=== PATIENT | male | born 1955 | race Caucasian/White ===

== ENCOUNTER 2021-03-09 14:25 | Outpatient (REF) | payer MEDICARE, OTHER, SELFPAY ==
--- NOTE | ~2021-03-09 | CT_ITS ---
EXAMINATION: CT CHEST SCREENING CLINICAL INFORMATION: 84-swnu-diyy history. COMPARISON: Chest x-ray and right rib x-ray February 2011 TECHNIQUE: Multidetector volumetric CT imaging of the chest is performed without contrast using low-dose technique. Additional 2-D coronal and sagittal reformatted images and axial 3-D maximum intensity projection (MIP) images are generated on the CT workstation. This CT examination was performed using dose optimization techniques as appropriate, variously including the following: *Automated exposure control *Adjustment of mA and/or kV according to patient size (this includes techniques or standardized protocols for targeted exams where dose is matched to indication/reason for exam; i.e. extremities or head) *Use of iterative reconstruction technique DLP: 91 mGy-cm FINDINGS: LUNGS: Right: There is a 3 mm right upper lobe nodule axial image 81 series 5. There is a 4 mm calcified right upper lobe nodule axial image 127 series 5. There is a 4 mm calcified right upper lobe nodule axial image 158 series 5. There is an 8 mm central right upper lobe nodule axial image 168 series 5. There is an 8 mm right middle lobe pulmonary nodule axial image 245 series 5. This appears peripheral or subpleural adjacent to the minor fissure and may represent a subpleural lymph node. There is a 3 mm peripheral or subpleural right upper lobe nodule adjacent to the junction of the major and minor fissure probably representing a subpleural lymph node. Left: There is volume loss to the left upper lobe. There is scarring or chronic subsegmental atelectasis in the left upper lobe. There may be an accessory fissure in the left upper lobe. There is a 3 mm calcified left upper lobe nodule axial image 127 series 5. There is a 3 mm left upper lobe nodule axial image 135 series 5. There are 2 small 2 mm peripheral or subpleural left upper and left lower lobe nodules adjacent to the left pleural fissure axial image 211 and axial image 212 series 5. There is a 3 mm left lower lobe nodule axial image 359 series 5. There is minimal linear scarring or subsegmental atelectasis at the left lung base. There is a 3 mm left lower lobe nodule in the posterior costophrenic angle axial image 457 series 5. There is question of left hilar adenopathy or central left lower lobe nodule or prominent vessel adjacent to the left pleural fissure. This is better visualized on sagittal and coronal reconstructed images. This measures 1.7 x 1 cm sagittal reconstructed image 40. MEDIASTINUM: There are prominent mediastinal lymph nodes. Largest lymph node is an anterior mediastinal/AP window lymph node that measures 1.3 cm in short axis axial image 20 series 3. The heart does not appear enlarged. There is no pericardial effusion. There is coronary artery calcification. PLEURA: There is a trace left pleural effusion or pleural thickening. AXILLA: There are small bilateral axillary lymph nodes. No chest wall mass or enlarged axillary lymph nodes are seen. UPPER ABDOMEN: Unremarkable. OSSEOUS STRUCTURES: There are degenerative changes of the spine. There are old right-sided rib fractures. CT/CT lung screening IMPRESSION: Bilateral pulmonary nodules. Largest right pulmonary nodule measures 8 mm in the central right upper lobe. Largest left pulmonary nodule is question pulmonary nodule versus hilar lymph node in the central left lung adjacent to the left pleural fissure and measures 1 x 1.7 cm. Prominent mediastinal lymph nodes. Coronary artery calcification. ASSESSMENT: Lung-RADS category 4. RECOMMENDATION: A 3-month low-dose chest CT followup with IV contrast to discern whether the central left lung nodule represents a vascular structure is recommended.
== END 2021-03-09 14:26 | disposition home or self-care (01) ==
LOC: HO.CT 14:25
PROVIDERS: PCP Internal Medicine; Visit Provider Physician Assistant Medical
DX: Z12.2 Encounter for screening for malignant neoplasm of respiratory organs (principal); F17.210 Nicotine dependence, cigarettes, uncomplicated
CPT/HCPCS: 71271; G0296

== ENCOUNTER 2021-04-10 11:11 | Outpatient (REF) | payer MEDICARE, OTHER, SELFPAY ==
--- NOTE | ~2021-04-10 | PE_ITS ---
EXAMINATION: Fluorine-18 FDG PET/CT Scan CLINICAL INDICATION: Initial treatment management. Pulmonary nodule. PROCEDURE: 56 minutes following the intravenous administration of 21.7 mCi of fluorine 18 FDG, images from the base of the skull to the mid thighs were obtained using a combined PET/CT scanner with CT scan based attenuation correction. No oral contrast was administered. No intravenous contrast was administered. Transverse, coronal, sagittal, and volume reconstruction projections were obtained. The patient's blood glucose as determined by a finger stick, was 117 mg/dl immediately prior to injection. Total CT exam dose-length product 1423.40 mGy-cm * These CT images were obtained using dose optimization techniques as appropriate, variously including the following: Automated exposure control * Adjustment of mA and/or kV according to patient size (this includes techniques or standardized protocols for targeted exams where dose is matched to indication/reason for exam; i.e. extremities or head) * Use of iterative reconstruction technique COMPARISON: No previous PET/CT scan is available for comparison. CT scan of the lungs dated 03/09/2021 is available for comparison. FINDINGS: (Slice numbers described in this report are numbered superiorly to inferiorly with slice #1 in the head) NECK AND VISUALIZED HEAD: No foci of abnormal FDG activity are noted. The distribution of FDG activity is physiological. There is no cervical lymphadenopathy. There is a left maxillary mucous coastal retention cyst present with no associated abnormal FDG activity. THORAX: Bilateral pulmonary nodules are present, but were better visualized on the diagnostic CT scan dated 03/09/2021. The largest of these in the medial aspect of the right lower lobe measures 1.0 x 0.8 cm, slice 88/311 and shows no abnormal FDG activity, but this is at the lower limits of resolution on the FDG PET images. All of the other nodules are subcentimeter in size and too small to be characterized on the FDG PET images. The largest of these other nodules is anterior in the right lung, probably in the middle lobe but abutting the horizontal fissure, measuring 0.8 x 0.6 cm in largest transverse dimensions, slice 102/311 and too small to be characterized on the FDG PET images. All the other nodules visualized on 03/09/2021 are much too small to be characterized on the FDG PET images and are not well visualized on these nondiagnostic CT images. Additional scarring or atelectasis anterolaterally in the left upper lobe is unchanged from 03/09/2021 shows no abnormal FDG activity. There is mildly increased activity in the left proximal peribronchial region on the left, at the bifurcation of the left mainstem bronchus showing SUVmax 4.1, slice 102/311 and there is another focus of mildly increased FDG activity just superior to the cavoatrial junction showing SUVmax 4.1, slice 103/311, both of these with no definite corresponding CT abnormalities on either these nondiagnostic CT images or the 03/09/[address] scan. 03/09/2021 showed a question of a vessel or adenopathy in the medial aspect of the interlobar fissure on the left which measured 1.7 x 1.0 cm in the sagittal reconstructions of that study and which corresponds to a 1.4 x 1.0 cm density on the axial image 106/311 of the current study. This is immediately inferior and lateral to the previously described FDG avid focus in this region, but does not appear to correspond to the latter. No additional foci of abnormal FDG activity are present in the chest. There is no pleural pericardial fluid. There is no mediastinal, supraclavicular, or axillary lymphadenopathy. ABDOMEN AND PELVIS: No foci of abnormal FDG activity are present in the abdomen or pelvis. There is mild FDG activity throughout the gastrointestinal tract without a suspicious focal component, likely physiological. There is diverticulosis without evidence of diverticulitis. The hollow viscera are otherwise unremarkable. The liver, gallbladder, spleen comment kidneys, adrenal glands, and pancreas appear unremarkable. There is no retroperitoneal, mesenteric, pelvic or inguinal lymphadenopathy. Small fat-containing bilateral inguinal hernias are present. The pelvic organs are otherwise unremarkable. MUSCULOSKELETAL: There is a small focus of mildly increased FDG activity in the lateral aspect of the left ninth rib, SUVmax 2.7, slice 145/311, with no corresponding CT abnormality, probably due to continued bone remodeling at a previous fracture site. No other foci of abnormal FDG activity are present in the osseous structures. There are mild degenerative changes in the spine and a grade 1 anterolisthesis of L5 on S1 is noted, and bilateral L5 pars defects are present with no associated abnormal FDG activity there activity. There is a lateral plate and multiple stabilizing screws in the distal right radius with no associated abnormal FDG activity. There are no suspicious sclerotic or lytic lesions visualized. VASCULAR: Vascular calcifications including coronary are noted. PET/PET CT fusion skull to thigh IMPRESSION: 1. Only the largest of multiple pulmonary nodules visualized on the 03/09/[address] scan are visualized on these nondiagnostic CT images, and these show no abnormal FDG activity, but are the lower limits of resolution on the FDG PET images. All of the other smaller nodules are not well visualized on these CT images and are much too small to be characterized on the FDG PET images. 2. An opacity in the medial aspect of the interlobar fissure on the left noted on the 03/09/2021 CT scan is visualized, measuring 1.4 x 1.0 cm on the axial images of the study. This shows no abnormal FDG activity, but medial and superior to this in the proximal peribronchial region of the left lung there is a focus of mildly increased activity present with no corresponding CT abnormality, and a similar mildly FDG avid focus in the region of the inferior aspect of the superior vena cava is noted, also with no associated CT abnormality. These are nonspecific, but the mild intensity suggests they may represent nonspecific inflammatory changes, possibly within lymph nodes that are not well visualized on the CT images. 3. Follow-up with diagnostic CT imaging in 3-6 months is recommended to evaluate the pulmonary nodules as well as these nonspecific mild FDG foci. 4. No additional abnormalities suspicious for metastatic or other malignant lesions are noted. 5. Vascular calcifications including coronary.
== END 2021-04-10 11:12 | disposition home or self-care (01) ==
LOC: HO.PET 11:11
PROVIDERS: PCP Internal Medicine; Visit Provider Surgery
DX: Z13.89 Encounter for screening for other disorder (principal)

== ENCOUNTER → 2021-04-12 13:56 | Outpatient (BNVA) | payer MEDICARE, OTHER, SELFPAY | PROVIDERS: PCP Internal Medicine; Visit Provider Internal Medicine | DX: J44.9 Chronic obstructive pulmonary disease, unspecified (principal); R91.8 Other nonspecific abnormal finding of lung field; F17.200 Nicotine dependence, unspecified, uncomplicated | CPT/HCPCS: 99202 ==

== ENCOUNTER 2021-04-24 07:51 | Outpatient (REF) | payer MEDICARE, OTHER, SELFPAY ==
--- NOTE | 2021-04-24 14:43 | PFT_ITS ---
INDICATION: Dyspnea. SPIROMETRY: The FEV1 to FVC 57% with an FEV1 2.91 L, which is 82% predicted; an FVC of 5.1 L, which is 109% predicted. Post bronchodilators, there was a significant improvement of the FVC by 13%. To note, the patient had significant small airways disease with an [id number] down to 35% predicted. Maximum voluntary ventilation 77% predicted. LUNG VOLUMES: Total lung capacity 96% predicted with a residual volume of 112% predicted and expiratory reserve volume of 59% predicted. DIFFUSION CAPACITY: DLCO 72% predicted. COMPARISONS: None. INTERPRETATION: There is an obstructive ventilatory defect consistent with mild COPD. The patient does have a significant response to bronchodilators noted and also there is evidence of small airways disease. There is a slight decrease in the maximum voluntary ventilation secondary to likely deconditioning. Lung volumes are within normal limits except for decrease in the expiratory reserve volume secondary to an elevated BMI. There is also a mild diffusion impairment. Clinical correlation warranted. Pedro Baird MD MR/MODL / [id number]
== END 2021-04-24 07:52 | disposition home or self-care (01) ==
LOC: HO.RESP 07:51
PROVIDERS: PCP Internal Medicine; Visit Provider Physician Assistant Medical
DX: R06.00 Dyspnea, unspecified (principal); R91.8 Other nonspecific abnormal finding of lung field; Z87.891 Personal history of nicotine dependence
CPT/HCPCS: 94060; 94727; 94729

== ENCOUNTER → 2021-05-14 08:49 | Outpatient (BNVA) | payer MEDICARE, SELFPAY | PROVIDERS: PCP Internal Medicine; Visit Provider Internal Medicine | DX: J44.9 Chronic obstructive pulmonary disease, unspecified (principal); R91.8 Other nonspecific abnormal finding of lung field; F17.210 Nicotine dependence, cigarettes, uncomplicated | CPT/HCPCS: 99212 ==

== ENCOUNTER 2022-10-29 06:30 | Outpatient (REF) | payer OTHER, SELFPAY ==
--- NOTE | ~2022-10-29 | XR_ITS ---
EXAMINATION: XR FOOT, RIGHT CLINICAL INFORMATION: Pain COMPARISON: Previous x-ray October 2016 TECHNIQUE: AP, lateral, and oblique views of the right foot. FINDINGS: Bone alignment is normal. No fracture or dislocation. There is arthritis at the first IP joint and MTP joint with joint space narrowing and osteophyte formation. Joint spaces are otherwise normal. There are sesamoid bones adjacent to the first metatarsal head with degenerative changes. There are calcaneal spurs. There are postsurgical changes with surgical tacks or anchors over the medial malleolus. 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 There are sesamoid bones adjacent to the first MTP joint with degenerative changes as well.
== END 2022-10-29 06:31 | disposition home or self-care (01) ==
LOC: HO.XRAY 06:30
PROVIDERS: PCP Internal Medicine; Visit Provider Internal Medicine
DX: M79.671 Pain in right foot (principal)
CPT/HCPCS: 73630

== ENCOUNTER 2024-12-21 09:46 | Outpatient (AMB) | payer OTHER, SELFPAY ==
--- OUTSIDE RECORDS SUMMARY | 2024-12-21 05:51 | XMS_ITS | Continuity of Care Document ---
Author Name [facility] Organization [facility] Care Team Providers Care Supervisor [employer] Name Role Phone [facility] Unavailable Unavailable Problems Combined list of problems from Department of Defense and Veterans Affairs facilities. It does not include entries that were removed or entered in error. Problem Status Onset Date Problem Type Date of Resolution Comments Source Chronic folliculitis Active Condition [facility] Continuous opioid dependence Active Condition Jul 16, 2024 Entered By: SMITH SANCHEZ Comment: since R ankle injury/surgery [facility] Eczema Active Condition Jul 10 Entered By: OSWALDO GUILLEN Comment: Unspecified [facility] Former heavy tobacco smoker Active Condition Jul 16, 2024 Entered By: SMITH SANCHEZ Comment: quit 2023 > 40 pack yr smoker [facility] Pain in right foot Active Condition Jul 10, 2024 Entered By: OSWALDO GUILLEN Comment: Open Fx Right foot [facility] Pain of right knee joint Active Condition Jul 10, 2024 Entered By: OSWALDO GUILLEN Comment: Knee Pain Right knee with surgery- 1994 [facility] Wrist pain Active Condition Jul 10 025 Entered By: OSWALDO GUILLEN Comment: Wrist FX Right wrist with Surgery- 2004 [facility] Diagnosis: ICD-10-CM L73.9 Follicular disorder, unspecified Active Diagnosis [facility] Medications Combined list of outpatient medications from Department of Defense and Veterans Affairs facilities.Medications provided include 1) outpatient medications from the last 15 months, and 2) patient-reported medications. Medication Details Route Status Patient Instructions Prescription Expires Prescription Number Last Dispense Date Ordering Provider Order Date Order Qty Source CHLORHEXIDI NE GLUCONATE 4% LIQUID,TOP APPLY SMALL AMOUNT TOPICALL Y ONCE DAILY DAILY FOR STAPH PROPHY TOPICA L ACTIVE 07/17/2025 [id number] 5 KESHIA YOUNGBLOODZABETH [address] [place] [address] Immunizations Combined list of available immunizations from the Department of Defense and Veterans Affairs facilities. Immunization Series Date Given Administered By Site Reaction Lot Number CVX Code Drug Title Attorney Status Comments Source COVID-19 (MODERNA), MRNA, LNP-S, PF, 50 MCG/0.5 ML (AGES 12+ YEARS) 5 2024 JOSEWILLIAMHerbert Nobles Brittney LEFT DELTO ID [id number] 312 complet ed [facility] INFLUENZA, HIGH-DOSE, TRIVALENT, PF 2024 LU GARCIA LEFT DELTO ID [id number] 135 complet ed Completed Series, [facility] COVID-19 (MODERNA), MRNA, LNP-S, PF, 100 MCG/0.5ML DOSE OR 50 MCG/0.25ML DOSE 4 2021 207 complet ed HISTORICA L INFORMATI ON - FROM OTHER REGISTRY, Covid Card Lot#: [id number] Mfr: MODERNA [employer] [facility] COVID-19 (MODERNA), MRNA, LNP-S, PF, 100 MCG/0.5ML DOSE OR 50 MCG/0.25ML DOSE 3 2020 207 complet ed HISTORICA L INFORMATI ON - FROM OTHER REGISTRY, Covid Card Lot#: [id number] Mfr: [employer] [facility] COVID-19 (MODERNA), MRNA, LNP-S, PF, 100 MCG/0.5ML DOSE OR 50 MCG/0.25ML DOSE 2 2020 207 complet ed HISTORICA L INFORMATI ON - FROM OTHER REGISTRY, Covid Card Lot#: [id number] Mfr: [employer] [facility] COVID-19 (MODERNA), MRNA, LNP-S, PF, 100 MCG/0.5ML DOSE OR 50 MCG/0.25ML DOSE 1 2020 207 complet ed HISTORICA L INFORMATI ON - FROM OTHER PROVIDER, Covid Card Lot#: [id number] Mfr: [employer] [facility] Vital Signs Combined list of inpatient and outpatient Vital Signs from Department of Defense and Veterans Affairs, ranging from 12 months to all on record, depending upon the facility. Vital Sign Value Date Comments Source SYSTOLIC BLOOD PRESSURE 148 07/17/19 25 08:56:19 [facility] DIASTOLIC BLOOD PRESSURE 82 025 08:56:19 [facility] PULSE OXIMETRY 98 07/16/2024 08:56:19 [facility] WEIGHT 258 07/16/2024 08:56:19 [facility] BMI 37 kg/m2 07/16/2024 08:56:19 [facility] PAIN 8 07/16/2024 08:56:19 [facility] HEIGHT 70 07/16/2024 08:56:19 [facility] TEMPERATURE 97.2 07/16/2024 08:56:19 [facility] PULSE 109 07/16/2024 08:56:19 [facility] RESPIRATION 20 07/16/2024 08:56:19 [facility] Encounters Combined list of: 1) Encounters from Department of Veterans Affairs facilities going backup to the last 18 months, not all VA inpatient encounters are included; 2) Encounters from the Department of Defense facilities going backup to 280 months. Location Location Details Encounter Type Encounter Number Reason For Visit Attending Provider ADM Date DC Date Status Disposition Source [facility] Outpatient Encounter [id number] 01/03 [facility] Encounter [id number] 06/29 [facility] En[facility] [id number] 07/10 [facility] En[facility] [id number] 07/16 [facility] OFFICE O/P NEW MOD 45 MIN [id number] Diagnos is: ICD-10- CM L73.9 Follicu car pal KATHE RINE ELIZABETH 07/16 [facility] En[facility] [id number] 08/03 [facility] En[facility] [id number] 08/05 [facility] [id number] 08/20 [facility] En[facility] [id number] 08/23 [facility] Social History Combined list of available smoking, tobacco, and other social history from Department of Defense and Veterans Affairs facilities. Social History Type Response Date Comment [facility] e Tobacco smoking status NHIS VA-TOBACCO USE FORMER CIGARETTES 07/10/2024 [facility] History of tobacco use VA-TOBACCO USE FORMER OTHER TYPE 07/10/2024 [facility] Advance Directives List of completed, amended, or rescinded Advance Directives on record at Department of Veterans Affairs facilities. An actual copy of the Directive is not included. Date Advance Directive Provider Source 07/16/2024 ADVANCE DIRECTIVE LESLY GARCIA RL MAYKEL CROUCHSCOTTY [facility]
--- NOTE | 2024-12-21 09:57 | A.OFFPC_ITS ---
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 Required: No Accompanied by: Self / Same As Patient Allergies No Known Allergies Allergy (Verified 12/21/24 11:50) Medication List - Last Reconciled 12/21/24 by Gertrude Bishop PA-C oxycodone 10 mg PO QID PRN Tobacco use date assessed: 12/21/24 Fall risk assessment: No Falls in past year Last assessed Fall Risk: 12/21/24 Dental Screening Dental Screen Date: 12/21/24 Did you have a dental visit in the last 12 months?: No Did you have a dental problem in the last 6 months where you did not have access to dental care?: No Was dental information given to patient?: No HPI Establish care- Zayda patient(needs pain contract) HPI Details The patient is a 69-year-old male presenting with an establishing care visit. He was a patient of Dr. Tovar. The patient has a history of Chronic Obstructive Pulmonary Disease (COPD), diagnosed a few years ago when he consulted a buttonhole tacker in 2021. He was prescribed inhalers at that time, although he denies experiencing chronic shortness of breath currently. The patient also has a history of a significant right foot/ankle injury sustained nine years ago, which required surgical intervention. He fell down approximately 15 stairs, resulting in a severe fracture where the bone protruded, necessitating surgery and subsequent pain management with oxycodone 10 mg 3 times a day. Following the surgery, he was [facility] to a [facility] where he met his previous primary care physician, Dr. Priest who continue to prescribe him the oxycodone for the right foot/ankle fracture that was surgically repaired by orthopedic surgeon. He reports he has not followed up with orthopedic surgeon since then since Dr. Priest has been giving him narcotics. He reports his son recently convinced him to go to the [facility] with him and when he was in the [facility] he reported he was unable to find a prescriber to give him the same medications therefore he came here to be restarted on his oxycodone 3 times a day [address] Dr. Priest gave him and increase in September to 4 times a day per kayliepat. Patient reports he has not been on the oxycodone since September and he is very adamant that he wants it refill today. Patient was not interested in speaking about any other medical conditions and was very irritable and angry throughout the history and physical and only wanted his oxycodone refilled. I explained to him that since he has not been on oxycodone for more than 2 months that I was not comfortable prescribing this especially at 3 or 4 times a day for an injury that happened 9 years ago that was surgically repaired and that I would have to speak to Dr. Vincent about this. He did agree to go to pain management although I explained to patient that pain management would not represcribe him the oxycodone they would more than likely give him alternate options such as alternate medications, injections or other therapies that they have available. Patient did not feel like this was acceptable and he started swearing at myself. At this time I open the exam room door and the patient stormed out saying that he was going to find another primary care provider that would prescribe him narcotics. Social history - Former smoker: Quit smoking nine month s ago. [facility] Medical History Chronic pain COPD (chronic obstructive pulmonary disease) Smoker Depression Hyperlipidemia Personal history of nicotine dependence Tubular adenoma of colon (~2017) Surgical History History of ankle surgery History of surgery on right wrist History of right knee surgery History of vasectomy (~1988) History of colonoscopy (~2017) Family History Father Lung cancer Mother Heart attack Social History Housing: Apartment Alcohol intake: current Alcohol intake frequency: a few times a week Patient Tobacco Use Status: Current everyday Tobacco user Tobacco use type: Cigarette service: Yes Current occupational status: disabled Cognitive needs: Yes (cane) Hearing needs: No Vision needs: Yes (rx glasses/ contact) Questionnaire PHQ-9 Over the last 2 weeks, how often have you been bothered by any of the following problems? 1. Little interest or pleasure in doing things: nearly every day 2. Feeling down, depressed, or hopeless: not at all 3. Trouble falling or staying asleep, or sleeping too much: nearly every day 4. Feeling tired or having little energy: nearly every day 5. Poor appetite or overeating: more than half the days 6. Feeling bad about yourself - or that you are a failure or have let yourself or your family down: not at all 7. Trouble concentrating on things, such as reading the newspaper or watching television: nearly every day 8. Moving or speaking so slowly that other people could have noticed. Or the opposite - being so fidgety or restless that you have been moving around a lot more than usual: nearly every day 9. Thoughts that you would be better off or of hurting yourself in some way: not at all Total score: 17 Depression Screening Interpretation: Positive Depression Screening Follow-up: Other (Patient left did not want to speak about anything else but refilling oxycodone medication) Depression Screening Done: Yes 67071 - PHQ-9 Billing: Yes Source: Developed by Drs. Mirza Davila, Chanel Felipe, Colin Greenberg and colleagues, with an educational izabel from [employer]. Thrive Questionnaire Date Thrive assessed: 12/21/24 I am a: Patient What is your living situation today?: I have a steady place to live Within the past 12 months, did the food you bought not last and you didn't have the money to get more?: Never true Within the past 12 months, did you worry whether your food would run out before you got money to buy more?: Never true Do you have trouble paying for medicines?: No Do you have trouble getting transportation to medical appointments?: No Do you have trouble paying your heating and electricity bill?: No Do you have trouble taking care of your child, family member or friend?: No Do you have trouble with day-to-day activities such as bathing, preparing meals, shopping, managing finances, etc.?: No Are you currently unemployed and looking for a job?: No Are you interested in more education?: No Please select the resources that you would like help with: None Currently or been in a relationship where the following occur: No concerns reported THRIVE Score: 0 AUDIT C Alcohol Use Questionnaire (AUDIT-C) 1. How often do you have a drink containing alcohol?: 2-3 times a week 2. How many drinks containing alcohol do you have on a typical day when you are drinking?: 1 or 2 3. How often do you have six or more drinks on one occasion?: Never Total Score: 3 Score Reviewed/Action Taken: No DRU-7 AMB Questionnaire DRU-7 Date DRU - 7 assessed: 12/21/24 Feeling nervous, anxious, or on edge: 3 = Nearly every day Not being able to stop or control worryin = More than half the days Worrying too much about different things: 0 = Not at all Trouble relaxin = Nearly every day Being so restless that it is hard to sit still: 2 = More than half the days Becoming easily annoyed or irritable: 3 = Nearly every day Feeling afraid as if something awful might happen: 0 = Not at all Total DRU-7 score (0-4 normal; 5-9 mild; 10-14 moderate; 15-21 severe): 13 Source: Developed by Drs. Mirza Davila, Chanel Felipe, Colin Greenberg and colleagues, with an educational izabel from [employer]. DRU-7 Assessment Billing DRU-7 Assessment Tool: DRU-7 Assessment 24965 Review of Systems Const Details: - Respiratory: Denies chronic dyspnea. All systems reviewed & are unremarkable except as noted in HPI and below Physical exam (Primary Care) Vital Signs: Last Vital Signs Temp 98.1 F 12/21/24 10:21 Pulse 100 12/21/24 10:21 Resp 20 12/21/24 10:21 BP 136/88 12/21/24 10:21 Pulse Ox 98 12/21/24 10:21 Oxygen Delivery Method Room Air 12/21/24 10:21 Care Plan Goal for BP management: <140/90 at Goal BMI result Body Mass Index 34.7 BMI Assessment/Plan discussion: High BMI High, discussed plan: lifestyle, weight reduction, dietary, physical activity and alcohol moderation Tobacco/Smoking Status: Tobacco use Status Tobacco use date assessed 12/21/24 12/21/24 10:26 Patient Tobacco Use Status Current everyday Tobacco 12/21/24 10:26 Tobacco use type Cigarette 12/21/24 10:26 PHQ-9: PHQ-9 Score PHQ-9: Total score 17 12/21/24 10:26 Depression Screening Interpretation: Positive Depression Screening Follow-up: Other (Patient left did not want to speak about anything else but refilling oxycodone medication) Thrive Assessment: Date of Thrive Assessment Date Thrive assessed 12/21/24 12/21/24 10:26 Currently or been in a relationship where the following occur: No concerns reported Const Other: Appearance: Alert. Oriented X3. No acute distress. Head: Normal external exam. Normocephalic. Atraumatic. Eyes: Extraocular movements intact. Conjunctiva and sclera normal. Eyelids normal. Throat: Moist mucous membranes. Neck: Neck supple. Full range of motion. Cardiovascular: Normal heart rate and rhythm. Respiratory: No respiratory distress. Painless inspiration. Back: Full range of motion noted. Skin: Skin warm and dry. Normal skin color. Extremities: Extremities exhibit normal range of motion. Normal steady gait. Coding Level of Care Code New Pt Level 4 (26456) Complex EM visit Add On G2211 Diagnoses COPD (chronic obstructive pulmonary disease) J44.9 Chronic pain G89.29 Additional Codes PHQ-9 - 72441 - PHQ-9 Billing: Yes ([id number]) DRU-7 Assessment Billing - DRU-7 Assessment Tool: DRU-7 Assessment 60384 ([id number]) Assessment & Plan Assessment & Plan (1) COPD (chronic obstructive pulmonary disease): Comment: PER PULMONARY FUNCTION TEST HE DOES HAVE EVIDENCE OF: MILD TO MODERATE DEGREE OF CHRONIC OBSTRUCTIVE PULMONARY DISEASE., WITH POSITIVE RESPONSE TO BDs . TX : HE WILL BENEFIT FROM COMBINATION OF ICS/LABD. FOR HIS CONVENIENCE AND BETTER COMPLIANCE I WILL ADD BREO 200-25 ONE INH DAILY AND HE WILL CONTINUE TO USE PROAIR 2 PUFFS Q 4-6 HOURS ONLY P.R.N., ESPECIALLY WHEN OUTDOORS. Code(s): J44.9 - Chronic obstructive pulmonary disease, unspecified Category: Medical Plan: The patient was previously diagnosed with COPD and was prescribed inhalers, although he currently denies chronic dyspnea. No further intervention indicated at this time. Will continue to monitor. (2) Chronic pain: Code(s): G89.29 - Other chronic pain Category: Medical Plan: The patient sustained a severe foot injury nine years ago, requiring surgical intervention and subsequent pain management with oxycodone. He has been referred to pain management for further evaluation and management of his chronic pain. I explained to him that I would have to discuss with Dr. Vincent about prescribing him the oxycodone 10 mg 3 or 4 times a day since he has not been on this for more than [address] Vincent although patient was not happy about this. He started to swear at myself, this made me feel very uncomfortable and unsafe therefore I open the exam room door the patient's storm out and reported that he would find another primary care provider that will prescribe him the narcotics and then he left the office. Plan Plan Patient was informed and verbally consented to the use of an ambient scribe for clinic note documentation during this visit. 1. Chronic Obstructive Pulmonary Disease (Copd) The patient was previously diagnosed with COPD and was prescribed inhalers, although he currently denies chronic dyspnea. No specific management plan was discussed during this visit. 2. History Of Foot Injury With Surgical Intervention The patient sustained a severe foot injury nine years ago, requiring surgical intervention and subsequent pain management with oxycodone. He has been referred to pain management for further evaluation and management of his chronic pain. I explained to him that I would have to discuss with Dr. Vincent about prescribing him the oxycodone 10 mg 3 or 4 times a day since he has not been on this for more than [address] Vincent although patient was not happy about this. He started to swear at myself, this made me feel very uncomfortable and unsafe therefore I open the exam room door the patient's storm out and reported that he would find another primary care provider that will prescribe him the narcotics and then he left the office. I discussed with the patient the current lack of a prescription for oxycodone and the referral to pain management for further evaluation. I explained that pain management might offer alternative treatments and that narcotics may not be prescribed. Orders: Referrals Pain Management Referral G89.29 - Other chronic pain Patient Instructions: - Follow up with pain management as referred for evaluation and management of chronic pain and patient was informed that narcotics most likely will not be prescribed although they most likely will offer alternate treatments for the patient.
[2024-12-21 10:21] VITALS: BP 136/88; PULSE 100; RESP 20; TEMP 36.7; O2SAT 98; BMI 34.7
--- OUTSIDE RECORDS SUMMARY | 2024-12-21 10:52 | XMS_ITS | Patient Health Record ---
Author Organization [facility] Address [address] [place] [address] Care Team Providers Care Chemical Etch Operator Name Role Phone Zayda (RETIRED) Moises CHAIDEZ Primary Care Provider Unavailable Mirza Edwards Unavailable [phone] Reason For Referral No Information Medications Medication SIG (Take, Route, Frequency, Duration) Notes Start Date End Date Status oxyCODONE HCl 5 MG 1 tablet Orally ever y 6 hrs/prn Active Dulcolax (colon prep) 5 MG take at 3:00 p.m and 7:00p.m. Orally two tablets twice a day for one day for 1 day 02/13/2017 Active MiraLax (colon prep) 8.3 ounce ((238) grams mixed with Gatorade or Crystal Light orally begin at 5:00 p.m. the day before the procedure for 1 day 02/13/2017 Active Chantix 1 MG 1 tablet Orally Twic e a day Active Social History Tobacco Use: Social History Observation Description Date Details (start date - stop date) Current Smoker NA - NA Tobacco Use/Smoking Question Answer Notes Patient is a current smoker How often do you smoke cigarettes? every day How many cigarettes a day do you smoke? 6-10 How soon after you wake up do you smoke your fir st cigarette? 6-30 minutes Are you interested in quitting? Ready to quit Alcohol Screen Question Answer Notes Did you have a drink contain ing alcohol in the past year? Yes How often did you have a dri nk containing alcohol in the past year? 2 to 4 times a month (2 points) How many drinks did you have on a typical day when you were drinking in the past year? 3 or 4 drinks (1 point) How often did you have 6 or more drinks on one occasion in the past year? Never (0 point) Points 3 Interpretation Negative Section Notes: Smoker 6 cigs QD; drinks twi ce a month--but heavier in the past Problems Problem Type SNOMED Code ICD Code Onset Dates Problem Status W/U Status Risk Notes Problem 258683408 Encounter for screening for malignant neoplasm of colon (Z12.11) Active confirmed Problem 766401163 Preprocedural examination (Z01.818) Active confirmed Plan Of Treatment Pending Test Test Name Order Date GI BIOPSY 05/26/2017 Future Test Test Name Order Date COLONOSCOPY 02/12/2017 Insurance Providers Payer Name Payer Address Payer Phone Subscriber Number Group Number Insured Name Patient Relationship to Insured Coverage Start Date Coverage End Date MEDICARE OF [place] [address] [facility] [place] [id number] GI PARKER Self - patient is the insured Medical (General) History Medical History History ICD Code Denies [place],DM,CVA,Lung disease,renal dise ase 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 Rust Sleep apnea by his history--has never shahid d a formal sleep study Surgical History Surgery Date(Month/Year) Right knee 1993 Right wrist 2006 Right ankle---compound fracture 2015
== END 2024-12-21 10:47 | disposition home or self-care (01) ==
LOC: HO.HMCSH 09:46
PROVIDERS: PCP Internal Medicine; Visit Provider Physician Assistant Medical
DX: J44.9 Chronic obstructive pulmonary disease, unspecified (principal); G89.29 Other chronic pain

== ENCOUNTER → 2024-12-21 09:46 | Outpatient (BNVA) | payer MEDICARE, SELFPAY | PROVIDERS: PCP Internal Medicine; Visit Provider Physician Assistant Medical | DX: J44.9 Chronic obstructive pulmonary disease, unspecified (principal); G89.29 Other chronic pain | CPT/HCPCS: 96127 ==

== ENCOUNTER 2025-01-10 08:25 | Outpatient (AMB) | payer MEDICARE, SELFPAY ==
--- NOTE | 2025-01-10 08:33 | A.OFFVIS_ITS ---
Vital Signs 01/10/25 08:34 Height 5 ft 9 in Weight 233 lb BMI 34.4 BP 129/90 H Blood Pressure Location Lt brachial Position Sitting Respiration 18 Pulse 117 H Pulse Source Pulse Oximeter Pulse Oximetry (%) 99 Oxygen Delivery Method Room Air Intake Visit Reasons: Other chronic pain Display Director Required: No Allergies No Known Allergies Allergy (Verified 01/10/25 08:39) HPI Comments Details: The patient is a 69-year-old male presenting with chronic pain management r elated to a right foot and ankle injury. The right foot and ankle injury occurred nine years ago following a fall down 15 stairs, resulting in a severe fracture that required surgical intervention. The patient underwent one surgery for the right foot and has experienced persistent pain since then. The pain is described as a constant sensation of walking on irvin, with burning and throbbing at night, and occasional shooting pains. 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 He reports neck pain that radiates down one side, although it is not as severe as the foot pain. The patient has been diagnosed with Chronic Obstructive Pulmonary Disease (COPD) and depression, although he does not currently see a counselor for depression. He smokes one pack of cigarettes per day, despite having quit for 9 months previously, and consumes beer twice weekly. The patient has tried various pain management strategies, including physical therapy, cortisone injections, and medications such as oxycodone and gabapentin, with limited success. He reports that oxycodone made the pain tolerable but did not eliminate it, and gabapentin was ineffective. He has also attempted non- pharmacological interventions such as lidocaine patches, marijuana extract, and various home remedies without significant relief. - Onset: Pain began nine years ago following a fall down 15 stairs. - Quality: Described as burning, throbbing, and like walking on irvin. - Location: Primarily in the right foot, extending to the toes and medial ankle. - Exacerbating factors: Walking and nighttime increase pain. - Relieving factors: Stretching the leg provides temporary relief. - Interference: Pain interferes with sleep and daily activities, including driving and family functions. - Affect: Pain significantly impacts mood, leading to feelings of depression and isolation. - Analgesia: Previously used oxycodone and gabapentin; currently not on any pain medication. - Adverse Effects: No adverse effects from current medications as none are being taken. - Activities of Daily Living: Pain limits mobility, affects sleep, and restricts participation in family activities. - Aberrant Drug Related Behaviors: No evidence of medication misuse or abuse reported. [facility] Medical History (Updated 01/10/25 @ 19:39 by LALA Escobar) Cervical disc herniation Cervical spondylosis Chronic pain COPD (chronic obstructive pulmonary disease) Smoker Depression Hyperlipidemia Personal history of nicotine dependence Tubular adenoma of colon (~2017) Surgical History (Updated 01/10/25 @ 09:31 by LALA Escobar) History of ankle surgery History of surgery on right wrist History of right knee surgery History of vasectomy (~1988) History of colonoscopy (~2017) Family History Father Lung cancer Mother Heart attack Social History Housing: Apartment Alcohol intake: current Alcohol intake frequency: a few times a week Patient Tobacco Use Status: Current everyday Tobacco user Tobacco use type: Cigarette service: Yes Current occupational status: disabled Cognitive needs: Yes (cane) Hearing needs: No Vision needs: Yes (rx glasses/ contact) Review of Systems Const Details: - Musculoskeletal: Reports chronic pain in the right foot and neck, denies back pain. - Neurological: Reports numbness and burning sensation in the right foot. - Respiratory: Reports history of COPD, denies current respiratory symptoms. - Psychological: Reports depression, denies current counseling. All systems reviewed & are unremarkable except as noted in HPI and below Physical Exam Vital Signs: Last Vital Signs Pulse 117 H 01/10/25 08:34 Resp 18 01/10/25 08:34 BP 129/90 H 01/10/25 08:34 Pulse Ox 99 01/10/25 08:34 Oxygen Delivery Method Room Air 01/10/25 08:34 BMI result Body Mass Index 34.4 General: Appears afebrile. Alert and oriented. Mood and affect appropriate. Follows and participates in conversation appropriately. Respiratory effort is unlabored. No cough. Able to transition from sit to stand unassisted. Ambulates with bilaterally normal heel strike and toe off. Back/Spine/Pelvis Cervical Spine: cervical muscular tenderness, pain with cervical ROM, No Cervical spine scars present, cervical spasm and No Cervical spine tenderness Thoracic/Lumbar Spine: thoracic and lumbar spine normal to inspection, pain with thoraco-lumbar ROM, thoraco-lumbar ROM limited, No thoracic spinal tenderness and No lumbar spinal tenderness Extrem General: Yes capillary refill normal, Yes no clubbing, cyanosis or edema and Yes no calf tenderness Right lower extremity: ankle (Well healed incision with normal scarring) Details: normal to inspection, tenderness Location: of the lateral malleolus, no edema and crepitus; no swelling, no unusual warmth and no ecchymosis and foot (Limited ROM due to pain. +Allodynia to right lateral ankle and forefoot.) Details: normal capillary refill, normal to inspection, tenderness (Toes and forefoot), no edema and crepitus; no unusual warmth and no ecchymosis Results Reviewed Results Reviewed: XR FOOT, RIGHT 10/29/22 CLINICAL INFORMATION: Pain COMPARISON: Previous x-ray October 2016 TECHNIQUE: AP, lateral, and oblique views of the right foot. FINDINGS: Bone alignment is normal. No fracture or dislocation. There is arthritis at the first IP joint and MTP joint with joint space narrowing and osteophyte formation. Joint spaces are otherwise normal. There are sesamoid bones adjacent to the first metatarsal head with degenerative changes. There are calcaneal spurs. There are postsurgical changes with surgical tacks or anchors over the medial malleolus. IMPRESSION: Arthritis at the first MTP joint. There are sesamoid bones adjacent to the first MTP joint with degenerative changes as well. Assessment & Plan Assessment & Plan (1) Chronic pain syndrome: Code(s): G89.4 - Chronic pain syndrome Category: Medical (2) History of ankle surgery: Comment: (right) Code(s): Z98.890 - Other specified postprocedural states Category: Medical (3) Pain in right ankle and joints of right foot: Code(s): M25.571 - Pain in right ankle and joints of right foot Category: Medical (4) Chronic low back pain: Code(s): M54.50 - Low back pain, unspecified; G89.29 - Other chronic pain Category: Medical Plan The plan for managing the patient's chronic pain involves exploring interventional procedures at the pain clinic. We discussed neuromodulation such as spinal cord stimulation, which could provide long-term pain relief for chronic right ankle and back pain. Placed referral for psychology clearance in anticipation of SCS trial. Extensive discussion regarding the risks and benefits of SCS trial and implant procedures and all questions were answered to patient satisfaction.?Will proceed with Teague Sci Lumbar SCS trial pending psychology clearance. We also discussed Sprint PNS trial for right ankle pain, however patient prefers a more permanent solution such as spinal cord stimulation. All questions and concerns have been answered and patient agreed with the treatment plan. Follow up as needed. Patient was informed and verbally consented to the use of an ambient scribe for clinic note documentation during this visit. Patient Instructions: - Schedule and attend the psychological evaluation as discussed. - Consider the temporary trial of spinal cord stimulation to assess its effectiveness. - Discuss the procedure and potential outcomes with family members for additional support. - Contact the clinic if there are any questions or concerns regarding the treatment plan. Coding Level of Care Code New Pt Level 4 (05773) Diagnoses Chronic pain syndrome G89.4 History of ankle surgery Z98.890 Pain in right ankle and joints of right foot M25.571 Chronic low back pain M54.50; G89.29
[2025-01-10 08:34] VITALS: BP 129/90; PULSE 117; RESP 18; O2SAT 99; BMI 34.4
--- OUTSIDE RECORDS SUMMARY | 2025-01-10 09:19 | XMS_ITS | Patient Health Record ---
Author Organization [facility] Address [address] [place] [address] Care Team Providers Care Sustainability Analyst Name Role Phone Zayda (RETIRED) Moises CHAIDEZ Primary Care Provider Unavailable Mirza Edwards Unavailable [phone] Reason For Referral No Information Medications Medication [...] Problem Status W/U Status Risk Notes Problem 235479724 Encounter for screening for malignant neoplasm of colon (Z12.11) Active confirmed Problem 463421801 Preprocedural examination (Z01.818) Active confirmed Plan Of Treatment Pending Test Test Name Order Date GI BIOPSY 05/26/2017 Future Test Test Name Order Date COLONOSCOPY 02/12/2017 Insurance Providers Payer Name Payer Address Payer Phone Subscriber Number Group Number Insured Name Patient Relationship to Insured Coverage Start Date Coverage End Date MEDICARE OF [place] [address] [facility] [place] [id number] [phone] [id number] GI PARKER Self - patient is the insured Medical (General) History Medical History History ICD Code Denies [place],DM,CVA,Lung disease,renal dise ase 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 Rust Sleep apnea by his history--has never shahid d a formal sleep study Surgical History Surgery Date(Month/Year) Right knee 1993 Right wrist 2006 Right ankle---compound fracture 2015
--- OUTSIDE RECORDS SUMMARY | 2025-01-10 09:19 | XMS_ITS ---
Author Organization [facility] [place] Care Team Providers Care Director Of Enterprise Architecture Name Role Phone ZaydaMoises Unavailable Unavailable Allergies and adverse reactions No Known Allergies Care Team Name Role Address Phone Organization Dates Moises [address] [place], [address], [place] (Office): : [facility] [employer] 10/19/2015 - 11/17/2015 Immunizations Immunization Status Vaccine Details Vaccine Code CodeSystem Date Notes Influenza cancelled Influenza, high-dose, split virus, trivalent, injectable, preservative free 135 CVX created date: 10/24/2015 consent date: 10/24/2015 Pneumovax Dose 1 cancelled pneumococcal polysaccharide vaccine, 23 valent 33 CVX created date: 10/24/2015 consent date: 10/24/2015 TB 2 Step Mantoux Skin Test completed tuberculin skin test; purified protein derivative solution, intradermal lotNumber: [id number] expiry: 08/03/2016 Mfg: [employer] Given 0.1 ml Right Forearm intradermally Step 1 of Multi-step with next step required 96 CVX created date: 10/29/2015 consent date: 10/29/2015 administer ed date: 10/29/2015 Educated by KAREN HERNANDEZ RN on 10/29/2015 PCV (Prevnar) 13 cancelled pneumococcal conjugate vaccine, 13 valent 133 CVX created date: 10/24/2015 consent date: 10/24/2015 Mental Status Section Date Assessment Total Score Description 11/17/2015 BIMS 15 cognitively int act PHQ-9 03 minimal depress ion 11/02/2015 BIMS 15 cognitively int act PHQ-9 04 minimal depress ion Problems Problem # Description Date of onset Resolved Date Code CodeSystem Concern Status 1 ACUTE RESPIRATORY FAILURE WITH HYPOXIA 10/19/[address] active 2 ALCOHOL ABUSE, UNCOMPLICATED 10/19/[address] active 3 ALCOHOL DEPENDENCE WITH WITHDRAWAL, UNSPECIFIED 10/19/[address] active 4 DIFFICULTY IN WALKING, NOT ELSEWHERE CLASSIFIED 10/19/[address] active 5 DISLOCATION OF RIGHT ANKLE JOINT, SEQUELA 10/19/[address] active 6 DISLOCATION OF RIGHT ANKLE JOINT, SUBSEQUENT ENCOUNTER 10/19/[address] active 7 FALL (ON) (FROM) UNSPECIFIED STAIRS AND STEPS, SUBSEQUENT ENCOUNTER 10/19/[address] active 8 HISTORY OF FALLING 10/19/[address] active 9 NICOTINE DEPENDENCE, UNSPECIFIED, UNCOMPLICATED 10/19/[address] active 10 OBESITY, UNSPECIFIED 10/19/[address] active 11 OBSTRUCTIVE SLEEP APNEA (ADULT) (PEDIATRIC) 10/19/[address] active 12 OTHER LACK OF COORDINATION 10/19/[address] active 13 OTHER MICROSCOPIC HEMATURIA 10/19/[address] active 14 OTHER SPECIFIED PROBLEMS RELATED TO PSYCHOSOCIAL CIRCUMSTANCES 10/19/[address] active 15 PAIN IN LEFT WRIST 10/19/2015 400405[address] T active 16 TACHYCARDIA, UNSPECIFIED 10/19/[address] active Reason for Referral No Reasons for Referral Entered Social History Social History Observation Description Start Date End Date Code Code System Current Smoking Status Tobacco smoking consumption unknown 706497613 SNOMED CT Sex Assigned At Male 1955 33941-9 [facility] Gender Identity Vital Signs Code Code System Vitals Name Values and Units Timing Information 9279-1 LOINC Respiratory Rate Value=18.0 Units=/m in 11/17/2015 8462-4 LOINC Blood Pressure-Diastolic Value=83 Un its=mmHg 11/17/2015 8480-6 LOINC Blood Pressure-Systolic Ckfoo=497 Un its=mmHg 11/17/2015 8310-5 LOINC Body Temperature Value=97.8 Units= F 11/17/2015 8867-4 [facility] Heart rate Wjmhu=715.0 Units=/min 11/17/2015 12928-9 [facility] O2 % BldC Oximetry Value=96.0 Units= % 11/17/2015 91570-2 [facility] Pain Level Value=8.0 11/16/2015 32370-0 [facility] Weight Rusck=214.7 Units=Lbs 09/2015 8302-2 [facility] Height Value=70.0 Units=Inches 10/20/2015
== END 2025-01-10 09:12 | disposition home or self-care (01) ==
LOC: HO.PMC 08:25
PROVIDERS: PCP Physician Assistant Medical; Referring Provider Physician Assistant Medical; Visit Provider Nurse Practitioner Family
DX: G89.4 Chronic pain syndrome (principal); Z98.890 Other specified postprocedural states; M25.571 Pain in right ankle and joints of right foot; M54.50 Low back pain, unspecified; G89.29 Other chronic pain
CPT/HCPCS: 99204

== ENCOUNTER → 2025-01-10 08:25 | Outpatient (BNVA) | payer MEDICARE, SELFPAY | PROVIDERS: PCP Physician Assistant Medical; Referring Provider Physician Assistant Medical; Visit Provider Nurse Practitioner Family | DX: G89.4 Chronic pain syndrome (principal); M25.571 Pain in right ankle and joints of right foot; M54.50 Low back pain, unspecified | CPT/HCPCS: 99202 ==

== ENCOUNTER 2025-02-22 08:06 | Outpatient (REF) | payer MEDICARE, SELFPAY ==
--- NOTE | ~2025-02-22 | XR_ITS ---
EXAMINATION: XR CHEST CLINICAL INFORMATION: long time smoker exertional sob COMPARISON: February 28, 2011. TECHNIQUE: PA and lateral views FINDINGS: Low lung volume. Linear opacity left lower hemithorax. No pneumothorax. Cardiomediastinal silhouette size is normal. Calcified plaque thoracic aorta. Multilevel thoracolumbar spondylosis. Osteopenia versus osteoporosis. XR/XR chest 2V IMPRESSION: Left-sided pleural effusion, moderate volume. Superimposed airspace disease cannot be excluded. Recommend CT chest. Electronically signed by: Lawrence Ochoa MD 02/22/2025 09:10 AM EDT
--- NOTE | ~2025-02-22 | XR_ITS ---
EXAMINATION: XR CERVICAL SPINE CLINICAL INFORMATION: chronic neck pain hx of neuropathy COMPARISON: None available. TECHNIQUE: AP oblique and lateral views. Atlantoodontoid view. FINDINGS: Craniocervical junction is intact. Multilevel marginal osteophyte formation and endplate sclerosis decreased intervertebral disc height C4 7. Grade 1 retrolisthesis C4-5. Bilateral neuroforamina stenosis from C4-5 to C6-7, left greater than the right side secondary to osteophyte formation. XR/XR cervical spine 4V IMPRESSION: Multilevel cervical spondylosis C4 C7, moderate to severe. Electronically signed by: Lawrence Ochoa MD 02/22/2025 09:12 AM EDT
--- OUTSIDE RECORDS SUMMARY | 2025-02-22 08:14 | XMS_ITS | Patient Health Record ---
Author Organization [facility] Address [address] [place] [address] Care Team Providers Care Therapeutic Recreation Leader Name Role Phone Zayda (RETIRED) Moises CHAIDEZ Primary Care Provider Unavailable Mirza Edwards Unavailable [phone] Reason For Referral No Information Medications Medication SIG (Take, Route, Frequency, Duration) Notes Start Date End Date Status oxyCODONE HCl 5 MG 1 tablet Orally ever y 6 hrs/prn Active Dulcolax (colon prep) 5 MG take at 3:00 p.m and 7:00p.m. Orally two tablets twice a day for one day; Duration: 1 day 02/13/2017 Active MiraLax (colon prep) 8.3 ounce ((238) grams mixed with Gatorade or Crystal Light orally begin at 5:00 p.m. the day before the procedure; Duration: 1 day 02/13/2017 Active Chantix 1 MG [...] Problem Status W/U Status Risk Notes Problem Screening for malignant neoplasm of colon (656677034) Encounter for screening for malignant neoplasm of colon (Z12.11) Active confirmed Problem Preprocedural examination (323328730539552) Preprocedural examination (Z01.818) Active confirmed Plan Of Treatment Pending Test Test Name Order Date GI BIOPSY 05/26/2017 Future Test Test Name Order Date COLONOSCOPY 02/12/2017 Insurance Providers Payer Name Payer Address Payer Phone Subscriber Number Group Number Insured Name Patient Relationship to Insured Coverage Start Date Coverage End Date MEDICARE OF [place] [address] [facility] [id number] GI PARKER Self - patient is the insured Medical (General) History Medical History History ICD Code Denies [place],DM,CVA,Lung disease,renal dise ase Ulcerated vocal cord lesion being treated with Dr. Fenton and ENT at [facility] in [place] as of 02/2017--he had previously been evaluated by Dr. Rust Sleep apnea by his history--has never shahid d a formal sleep study Surgical History Surgery Date(Month/Year) Right knee 1993 Right wrist 2006 Right ankle---compound fracture 2015
--- OUTSIDE RECORDS SUMMARY | 2025-02-22 08:14 | XMS_ITS | Clinical Summary ---
Author Organization [facility] [facility] Address [address] [place] [address] Care Team Providers Care Filter Worker Name Role Phone Monique Torres RUSLAN Primary Care Provider [phone] Allergies No known active allergies Medications olmesartan (Benicar) 40 MG tabletIndication s:Hypertension, unspecified type Take 1 tablet (40 mg) by mouth Once per day. 30 tablet 1 02/16/2025 02/17/20 26 Active traMADol (Ultram) 50 MG tabletIndication s:Neck pain Take 1 tablet (50 mg) by mouth every 6 (six) hours if needed for severe pain for up to 5 days. 20 tablet 02/16/2025 02/22/20 25 Active Problems Problem Noted Date Diagnosed Date Tachycardia 02/16/2025 Assessment & Plan (02/16/2025 1:17 PM EDT): Noted with asuculatation- only symptom is shortness of breath with exertion. Completed an EKG which revealed a right bandle branch block and left anterior fascicular block. EKG will be faxed to cardiology. Orders: Lipid Panel, Standard; Future Basic Metabolic Panel; Future ECG 12 lead Neck pain 02/16/2025 Assessment & Plan (02/16/2025 1:17 PM EDT): Reports history of cervical disc herniation- Will order cervical spine x-ray. Will refer him to physical therapy, chronic pain group, and physiatry Will order tramadol for 5 days. Orders: traMADol (Ultram) 50 MG tablet; Take 1 tablet (50 mg) by mouth every 6 (six) hours if needed for severe pain for up to 5 days. Referral to Physical Therapy; Future Referral to [facility] Clinic; Future XR CERVICAL SPINE 4V; Future Referral to Physiatry; Future Shortness of breath on exertion 02/16/2025 Assessment & Plan (02/16/2025 1:17 PM EDT): Will order chest-xray. Orders: XR Chest 2 Views; Future Hypertension 02/16/2025 Assessment & Plan (02/16/2025 1:17 PM EDT): Will start with Olmesartan, high dose daily, and return in 1 week for evaluation Will order fasting liver function and AIC, along with BMP. Orders: olmesartan (Benicar) 40 MG tablet; Take 1 tablet (40 mg) by mouth Once per day. Hepatic Function Panel; Future Hemoglobin A1c; Future Referral to Cardiology; Future Encounters Date Type Department Care Team Description 02/16/2025 10:45 AM EDT Office Visit [facility] [address] [place] [phone] Monique Torres NP Tachycardia (Primary Dx); Neck pain; Hypertension, unspecified type; Shortness of breath on exertion 02/16/2025 Telephone [facility] [address] [place] [phone] Dante Randall MA Referral ([facility] Cardiology ) 02/16/2025 Travel 02/15/[address] [address] Sandra Obrien NP Chart Prep 02/14/[address] [phone] Name, MD Jorge Insurance 02/09/2025 Patient Outreach [facility] [address] [place], [place] [phone] Sandra Obrien NP Pre-visit Planning (SDOH negative, Tobacco screening positive) from Last 3 Months Immunizations Immunization Administration Dates Next Due INFLUENZA INJECTABLE QUADRIV ALANT CCIIV4 MDCK Multi-dose vial 04/26/2020 Influenza injectable quadriv alent IIV4 with preservative 01/21/2022,02/20/2021 Social History Tobacco Use Types Packs/Day Years Used Date Smoking Tobacco: Never Passive Smoke Exposure: Never Smokeless Tobacco: Never Tobacco Cessation:Counseling Given: Not Answered Alcohol Use Standard Drinks/Week Comments Never 0 (1 standard drink = 0.6 oz pur e alcohol) Housing Stability Answer Date Recorded What is your housing situation today? I have ivone jaime 02/09/[address] you li ve. Do you have problems with any of the following? None of the above 02/09/2025 Food Insecurity Answer Date Recorded Within the past 12 months, y ou worried that your food would run out before you got money to buy more: Never True 02/09/2025 Within the past 12 months,th e food you bought just didn't last and you didn't have enough money to get more: Never True 12/2024 Transportation Answer Date Recorded In the past 12 months, has l ack of transportation kept you from medical appts, meetings, work or from getting things needed for daily living? No 02/09/2025 Utilities Answer Date Recorded In the past 12 months, has t he electric, gas, oil or water company threatened to shut off services in your home? No 02/09/2025 Depression Answer Date Recorded Patient Health Questionnaire-2 Score 6 02/16/2025 Internet Access Answer Date Recorded Internet Access Q1 Yes 02/09/2025 Internet Access Q2 Not on file 02/09/2025 Sex and Gender Information Value Date Recorded Sex Assigned at Male 03/04/2022 10:17 AM EDT Legal Sex Male 10:17 AM EDT Gender Identity Male 02/16/2025 10:32 AM EDT Sexual Orientation Straight 02/16/2025 10 :32 AM EDT Last Filed Vital Signs Vital Sign Reading Time Taken Comments Blood Pressure 140/110 02/16/2025 1:05 PM EDT Pulse 116 02/16/2025 1:05 PM EDT Temperature 36.7 C (98 F) 02/16/2025 11:06 AM EDT Respiratory Rate 16 02/16/2025 11:06 AM EDT Oxygen Saturation 97% 02/16/2025 11:06 AM EDT Inhaled Oxygen Concentration - - Weight 112 kg (247 lb 3.2 oz) 02/16/2025 11:06 A M EDT Height 177.8 cm (5' 10 ) 02/16/2025 11:06 AM EDT Body Mass Index 35.47 02/16/2025 11:06 AM EDT Plan of Treatment Upcoming Encounters Date Type Department Care Team (Late st Contact Info) Description 02/25/2025 11:30 AM EDT Clinical Support [address] [address] Health Maintenance Due Date Last Done Comments CT Colonography 1955 Colonoscopy 1955 Colorectal Cancer Screening 1955 FIT DNA/Cologuard 1955 FIT 1955 FOBT 1955 Lipid Panel 1955 Sigmoidoscopy 1955 Alcohol/Substance Use Screening 1967 Hepatitis C Screening 09/14/1973 DTaP/Tdap/Td Vaccines (1 - Tdap) 09/14/1974 Pneumococcal Vaccine: 50+ Years (1 of 2 - PCV) 09/14/1974 Zoster Vaccines (1 of 2) 09/14/2005 Influenza Vaccine (#1) 2025 , 01/10/2023, 01/21/2022, Additional history exists COVID-19 Vaccine ( season) 2025 07/16/2024, 04/15/2022, 04/23/2021, Additional history exists SDOH Screening 02/09/2026 02/09/2025 Depression Screening 02/16/2026 02/16/2025, 02/17/20 Tobacco Screening 02/16/2026 02/16/2025 RSV Patients and Patients Aged 60 years or older (1 - 1-dose 75+ series) 09/14/2030 HIB Vaccines Aged Out No longer eligi ble based on patient's age to complete this topic HPV Vaccines Aged Out No longer eligi ble based on patient's age to complete this topic Hepatitis A Vaccines Aged Out No long er eligible based on patient's age to complete this topic Hepatitis B Vaccines Aged Out No long er eligible based on patient's age to complete this topic IPV Vaccines Aged Out No longer eligi ble based on patient's age to complete this topic Meningococcal B Vaccine Aged Out No l onger eligible based on patient's age to complete this topic Meningococcal Vaccine Aged Out No keshia connor eligible based on patient's age to complete this topic RSV under 20 months Aged Out No longe r eligible based on patient's age to complete this topic Rotavirus Vaccines Aged Out No longer eligible based on patient's age to complete this topic Procedures Procedure Name Priority Date/Time Associated Diagnosis Comments ECG 12-LEAD Routine 02/16/2025 1:17 PM EDT Tachycardia from Last 3 Months Results * ECG 12 lead (02/16/2025 1:17 PM EDT) Monique Oden NP - 02/16/2025 1:17 PM EDT Lafb, rbbb ?depression in leads 2 and 5 us Monique Torres NP ECG ORDERABLES Final Result from Last 3 Months Insurance HUMAN PPO MEDICARE Care Teams Filter Worker Relationship Specialty Start Date End Date Monique Torres NP [address] [place] [id number] PCP - General Family Medicine 02/21/25
[2025-02-22 12:21] LABS: Alanine Aminotransferase 22 U/L (0-40); Albumin Level 4.4 g/dL (3.5-5.0); Alkaline Phosphatase 73 U/L (39-117); Anion Gap 9 (12-20); Aspartate Amino Transferase 24 U/L (5-37); Blood Urea Nitrogen 19 mg/dL (9-16); Calcium 9.0 mg/dL (8.4-10.2); Carbon Dioxide 24 mmol/L (22-29); Chloride 110 mmol/L (96-108); Cholesterol 214 mg/dL (<200); Estimated Glomerular Filt Rate > 60; HDL Cholesterol 34 mg/dL (>40); Potassium 4.1 mmol/L (3.3-5.1); Sodium 139 mmol/L (135-145); Total Protein 7.4 g/dL (6.5-8.0); Triglycerides 125 mg/dL (<150)
== END 2025-02-22 08:07 | disposition home or self-care (01) ==
LOC: HO.HHCL 08:06
PROVIDERS: PCP Nurse Practitioner Family; Visit Provider Nurse Practitioner Family
DX: R06.02 Shortness of breath (principal); G89.29 Other chronic pain; M54.2 Cervicalgia; I10 Essential (primary) hypertension; R00.0 Tachycardia, unspecified; Z13.1 Encounter for screening for diabetes mellitus; F17.200 Nicotine dependence, unspecified, uncomplicated
CPT/HCPCS: 36415; 71046; 72050; 80048; 80061; 80076; 83036

== ENCOUNTER → 2025-02-22 08:35 | Outpatient (BNV) | payer MEDICARE, SELFPAY | PROVIDERS: PCP Nurse Practitioner Family; Visit Provider Radiology Diagnostic Radiology | DX: M47.812 Spondylosis without myelopathy or radiculopathy, cervical region (principal); J90 Pleural effusion, not elsewhere classified | CPT/HCPCS: 71046; 72050 ==

== ENCOUNTER 2025-03-01 12:52 | Outpatient (REF) | payer MEDICARE, SELFPAY ==
--- OUTSIDE RECORDS SUMMARY | 2025-02-25 11:30 | XMS_ITS | Encounter Summary ---
Author Organization [employer] Address [address] [place] [address] Care Team Providers Care General Counsel Name Role Phone MelissaMonique RUSLAN Primary Care Provider Reason for Visit * Reason Comments Blood Pressure Check Encounter Details Date Type Department Care Team (Latest Contact Info) Description 02/25/2025 11:30 AM EDT Clinical Support [facility] MEDICINE [address] [place], [place] [phone] Sonia West RN Hypertension, unspecified type Social History Tobacco Use Types Packs/Day Years Used Date Smoking Tobacco: Never Passive Smoke Exposure: Never Smokeless Tobacco: Never Alcohol Use Standard Drinks/Week Comments Never 0 [...] Orientation Straight 02/16/2025 10 :32 AM EDT documented as of this encounter Last Filed Vital Signs Vital Sign Reading Time Taken Comments Blood Pressure 122/64 02/25/2025 11:36 AM EDT Pulse 114 02/25/2025 11:34 AM EDT Temperature 37.1 C (98.7 F) 02/25/2025 11:34 AM EDT Respiratory Rate 18 02/25/2025 11:34 AM EDT Oxygen Saturation - - Inhaled Oxygen Concentration - - Weight 114 kg (250 lb 6.4 oz) 02/25/2025 11:34 A M EDT Height 177.8 cm (5' 10 ) 02/25/2025 11:34 AM EDT Body Mass Index 35.93 02/25/2025 11:34 AM EDT documented in this encounter Progress Notes * Sonia West RN - 02/25/2025 11:30 AM EDT SUBJECTIVE: Pt presented to blue team do do Blood Pressure Check nurse visit. At last OV BP noted 140/116 HR: 116. Recommendations at last visit were per covering provider Will start with Olmesartan, high dosedaily, and return in 1 week for evaluation. Will order fasting liver function and AIC, along with BMP. Today, pt does not complain of shortness breath, chest pain, dizziness, or headaches. Pt reportsthey smoke about under a pack per day and drinks alcohol occasionally. Pt has not picked up the nicotine gum and patch due to not being covered by insurance. Pt declines need for them at this time. Pt reports they hate coming to the doctors. Pt reports that they took their BP medication this morning and has been taking it everyday as prescribed. Pt reports they're stressed at the moment due to was planning to move to [facility] but ended up staying the [place] and have to focus mainly on their finances. Pt reports they do not really follow a diet but mainly cooks at home. Pt reports they'll make chilli, spaghetti, lucas's pie and a can of coke a day. Pt denies eating fruits and vegetables. Pt reports they do not drink a lot of water but mainly drinks lemonade instead. Pt reports 8/10 foot pain which they take tramadol but not alleviate but makes them feel comfortable. Pt reports they have enough until Friday and would like provider to refill again when they're due. [employer] checked Tramadol last sold on 02/23/25 with 20 tabs ( 5 days supply). Pt will be due for refill on 02/28/25. BP Readings from Last 4 Encounters: 02/25/25 122/64 02/16/25 (!) 140/110 Pulse Readings from Last 4 Encounters: 02/25/25 (!) 114 02/16/25 (!) 116 OBJECTIVE: Pt rx olmesartan (Benicar) 40 MG tablet (Take 1 tablet (40 mg) by mouth Once per day. ) Vitals: 02/25/25 1134 02/25/25 1136 BP: 124/60 122/64 BP Location: Left arm Right arm Patient Position: Sitting Sitting BP Cuff Size: Adult Adult Pulse: (!) 114 Resp: 18 Temp: 98.7 ??F (37.1 ??C) TempSrc: Oral Weight: 250 lb 6.4 oz (114 kg) Height: 5' 10 (1.778 m) ASSESSMENT: Achieve goal blood pressure of <140/90 or <130/80 PLAN: Pt advised to continue taking medications as directed and reinforcement of lifestyle modifications including low sodium diet and exercise were reviewed. Pt advised that a message will be sent to their PCP and we'll call them to let them know of any changes to their plan of care. Pt agreeable to plan discussed at today's visit. Message sent to PCP for review. Future Appointments Date Time Provider Department Center 03/01/2025 9:45 AM [facility]RON[facility] PAIN [facility] MEDICINE [facility] Sonia West RN documented in this encounter Plan of Treatment Upcoming Encounters Date Type Department Care Team (Late st Contact Info) Description 03/17/2025 8:30 AM EST Clinical Support [facility] MEDICINE [address] [place] [phone] Colette Reddy, PACO 05/10/2025 1:45 PM EST Office Visit [facility] MEDICINE [address] [place], [place] [phone] Monique Torres NP [address] [place], [place] [phone] documented as of this encounter Visit Diagnoses Diagnosis Hypertension, unspecified type documented in this encounter Care Teams General Counsel Relationship Specialty Start Date End Date Monique Torres NP [address] [place] [phone] PCP - General Family Medicine 02/21/25 documented as of this encounter
--- OUTSIDE RECORDS SUMMARY | 2025-03-01 09:45 | XMS_ITS | Encounter Summary ---
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 Stated he was unable to stay for group d/t increased back painsecondary to sitting for 2 hours. 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 The patient last took Tramadol (Ultram) on: 03/01/2025 Pt shared with this rfp writer that he was given an oxycodone 5mg last night from his friend since he was in so much pain. OBJECTIVE: CHANNEL MARKETING MANAGER checked: 03/01/2025 Pill count completed for Tramadol (Ultram), count today is 19 , anticipated count should be 19, this is as expected. Vital Signs Pain Score: 9 Pain Loc: Back Pain Education: Yes Additional pain site: hands, neck, right knee and feet Last PCP visit: 02/22/25 Opioid risk score: 3 BPI completed on: 03/01/2025 , pain severity score: 8, activity interference score: 10 Smoking - states he smokes less than 1 pack a day and has for >50 years Alcohol - seldom, socially, will have 1 beer and 1 shot only' Illciti drugs - Denies Marijuana - Denies Controlled substance agreement signed: No scanned or signed documents on file Controlled substance agreement: signed and up to date ACETONE RECOVERY WORKER Tier: 1 Current Medications[1] Lab Results Component Value Date POCTHC Negative 03/01/2025 POCCOCAINEUR Positive (A) 03/01/2025 POCOPIATEUR Positive (A) 03/01/2025 DOAUR Negative 03/01/2025 POCAMPHETAMI Negative 03/01/2025 POCBENZODIUR Negative 03/01/2025 POCBARBSCRN Negative 03/01/2025 POCMETHADOUR Negative 03/01/2025 POCBUPSCRN Negative 03/01/2025 POCTCAUR Negative 03/01/2025 POCMDMAUR Negative 03/01/2025 POCOXYCODONE Positive (A) 03/01/2025 POCPHENCYCUR Negative 03/01/2025 PROPOXUR Negative 03/01/2025 FENTANYLURIN Negative 03/01/2025 Reviewed UTOX results. Advised patient of dangers of using someone elses medications. Pt unsure if percocet from his friend was from the street or a prescription. Pt stated he will not do that again and that he was just in so much pain at the time. Explained I would send urine out for confirmation and call him if the results are abnormal. ASSESSMENT: Encounter Diagnosis Name Primary? Long-term current use of opiate analgesic Yes PLAN: Information on pain group given: Yes Information on acupuncture given: Yes Narcan education provided: Yes Narcan prescription: will send request Will update PCP with UTOX results and request narcan prescription. Controlled substance agreement reviewed and signed. A copy was given to the patient. Stanley Mejia will continue taking medications as prescribed and has verbalized understanding of care plan. Future Appointments Date Time Provider Department Center 03/17/2025 8:30 AM Colette Reddy RN MEDICINE [facility] 05/10/2025 1:45 PM Monique Torres NP MEDICINE [facility] Colette Reddy RN [1] Current Outpatient Medications: traMADol (Ultram) 50 MG tablet, Take 1 tablet (50 mg) by mouth every 6 (six) hours if needed for severe pain for up to 5 days. Do not start before February 28, 2025., Disp: 20 tablet, Rfl: 0 nicotine (Nicoderm CQ) 14 MG/24HR patch, Place 1 patch on the skin 1 (one) time each day at the same time., Disp: 30 patch, Rfl: 0 nicotine polacrilex (Nicorette) 4 MG gum, Chew 1 each (4 mg) if needed for smoking cessation., Disp: 100 each, Rfl: 0 olmesartan (Benicar) 40 MG tablet, Take 1 tablet (40 mg) by mouth Once per day., Disp: 30 tablet, Rfl: 1 documented in this encounter Plan of Treatment Upcoming Encounters Date Type Department Care Team (Late st Contact Info) Description 03/17/2025 8:30 AM EST Clinical Support [address] [address] Colette Reddy RN 05/10/2025 1:45 PM EST Office Visit [address] [address] Monique Torres NP [address] [place] [address] Scheduled Orders Name Type Priority Associated Diagnoses Orde r Schedule Drug Monitoring, Cocaine Metabolite, Quantitative, Urine Lab Routine Long-term current use of opiate analgesic Ordered: 03/01/2025 Drug Monitoring, Opiates Expanded, Quantitative, Urine Lab Routine Long-term current use of opiate analgesic Ordered: 03/01/2025 documented as of this encounter Procedures Procedure Name Priority Date/Time Associated Diagnosis Comments POCT CHIDI-14 URINE DRUG SCREEN Routine 03/01/2025 10:24 AM EDT Long-term current use of opiate analgesic OXYCODONE SCREEN, URINE Routine 03/01/2025 10:00 AM EDT Long-term current use of opiate analgesic documented in this encounter Results * (ABNORMAL) POCT CHIDI-14 Urine Drug Screen (03/01/2025 10:24 AM EDT) [facility] THC Negative Negative Cocaine Screen, Urine Positive(A) Negative Opiate Screen, Urine Positive(A) Negative Methamphetamine Screen Urine Negative Negative Amphetamine Screen, Urine Negative Negative Benzodiazepines Screen, Urine Negative Negative Barbiturate Screen, Urine Negative Negative Methadone Screen, Urine Negative Negative Buprenophine Screen, Urine Negative Negative TCA, Urine Negative Negative MDMA Urine Negative Negative ng/mL Oxycodone Screen, Urine Positive(A) Negative Phencyclidine (PCP), Urine Negative Negative Propoxyphene, Urine Negative Negative Fentanyl, Urine Negative Negative Urine Urine specimen obtained by clean catch procedure / Unknown 03/01/2025 10:24 AM EDT Narrative Colette Reddy RN - 03/01/2025 10:24 AM EDT UTOX cup Lot#[id number] Exp. 02/08/26 Internal Pass Control Monique Torres PUBLIC AFFAIRS SPECIALIST POINT OF CARE TEST ENTER/EDIT OR DERABLES Final Result * (ABNORMAL) Oxycodone Screen, Urine (03/01/2025 10:00 AM EDT) Oxycodone Urine Screen Positive( A) Not Detect ng/mL [facility] Comment:Oxycodone cut-off is 100 ng/mL.Positive results are unconfirmed and should not be used fornon-medical purposes. Urine 03/01/2025 10:0 0 AM EDT 03/01/2025 12:53 PM EDT us Monique Torres PUBLIC AFFAIRS SPECIALIST LAB URINE ORDERABLES Final Resul t [facility] [address] [place] [phone] documented in this encounter Visit Diagnoses Diagnosis Long-term current use of opiate analgesic- Primary Encounter for long-term (current) use of other medications documented in this encounter Care Teams Enterprise Business Architect Relationship Specialty Start Date End Date Monique Torres NP [address] [place] [phone] PCP - General Family Medicine 02/21/25 documented as of this encounter
--- OUTSIDE RECORDS SUMMARY | 2025-03-01 16:15 | XMS_ITS | Encounter Summary ---
Author Organization [employer] Address [address] [facility] 7t [place] [address] Care Team Providers Care Card Feeder Name Role Phone Melissa Monique RUSLAN Primary Care Provider [phone] Reason for Visit * Reason Onset Date Comments Med Refill 03/01/2025 MINING ENGINEER Agreement signed today 03/01/2025 Recommend MINING ENGINEER Tier 1 03/01/2025 Encounter Details Date Type Department Care Team (Late st Contact Info) Description 03/01/2025 Refill [facility] MEDICINE [address] [place], [place] [phone] Colette Reddy RN Long-term current use of opiate analgesic (Primary Dx) Social History Tobacco Use Types Packs/Day Years Used Date Smoking Tobacco: Never Passive Smoke Exposure: Never Smokeless Tobacco: Never Alcohol Use Standard Drinks/Week Comments Never 0 (1 standard drink = 0.6 oz pur e alcohol) Housing Stability Answer Date Recorded What is your housing situation today? I have ivonecarlos jaime 02/09/[address] you [...] AM EDT documented as of this encounter Miscellaneous Notes * Telephone Encounter - Colette Reddy RN - 03/01/2025 10:32 AM EDT Pt came to chronic pain group but could not stay. MINING ENGINEER Initial visit completed. UTOX was Pos DELMER, OXY and MOP, sent out for confirmation. Pt shared with this copy writer that he was given an oxycodone 5mg last night from his friend since he was in so much pain. Reviewed UTOX results. Advised patient of dangers of using someone elses medications. Pt unsure if percocet from his friend was from the street or a prescription. Pt stated he will not do that again and that he was just in so much pain at the time. Explained I would send urine out for confirmation and call him if the results are abnormal. Pt scheduled to return to [facility] in 2 weeks. What MINING ENGINEER Tier would you like this patient to be? I recommend Tier 1, please let me know if you agree or would rather patient be in another MINING ENGINEER Tier. Tier 1 = HIGH RISK, Monthly MINING ENGINEER visits Tier 2 = MODerate RISK, Q3 Month visits Tier 3 = LOW RISK = Q4-6 month visits documented in this encounter Plan of Treatment Upcoming Encounters Date Type Department Care Team (Late st Contact Info) Description 03/17/2025 8:30 AM EST Clinical Support [facility] MEDICINE [address] [place] [phone] Colette Reddy RN 05/10/2025 1:45 PM EST Office Visit [facility] MEDICINE [address] [place] [phone] Monique Torres NP [address] [place] [address] documented as of this encounter Visit Diagnoses Diagnosis Long-term current use of opiate analgesic- Primary Encounter for long-term (current) use of other medications documented in this encounter Care Teams Card Feeder Relationship Specialty Start Date End Date Monique Torres NP [address] [place] [address] PCP - General Family Medicine 02/21/25 documented as of this encounter
--- OUTSIDE RECORDS SUMMARY | 2025-03-01 16:15 | XMS_ITS | Encounter Summary ---
Author Organization [employer] Address [address] [place] [address] Care Team Providers Care Scale Mechanic Name Role Phone José LuisMonique moreno RUSLAN Primary Care Provider [phone] Encounter Details Date Type Department Care Team (Late st Contact Info) Description 02/25/2025 Refill [facility] MEDICINE [address] [place], [place] [phone] Sonia West, RN Neck pain Social History Tobacco Use Types Packs/Day Years [...] encounter Miscellaneous Notes * Telephone Encounter - Sonia West RN - 02/25/2025 1:59 PM EDT [facility] checked Tramadol last sold on 02/23/25 with 20 tabs ( 5 days supply). Pt will be due for refill on 02/28/25. Medication pended to PCP for review. documented in this encounter Plan of Treatment Upcoming Encounters Date Type Department Care Team (Late st Contact Info) Description 03/17/2025 8:30 AM EST Clinical Support [facility] MEDICINE [address] [place] [address] Colette Reddy RN 05/10/2025 1:45 PM EST Office Visit [facility] MEDICINE [address] [place] [address] Monique Torres NP [address] [place] [address] documented as of this encounter Visit Diagnoses Diagnosis Neck pain Cervicalgia documented in this encounter Care Teams Scale Mechanic Relationship Specialty Start Date End Date Monique Torres NP [address] [place] [address] PCP - General Family Medicine 02/21/25 documented as of this encounter
--- OUTSIDE RECORDS SUMMARY | 2025-03-01 16:15 | XMS_ITS | Patient Health Record ---
Author Organization [facility] Address [address] [place] [address] Care Team Providers Care Physical Optics Teacher Name Role Phone Zayda (RETIRED) Moises CHAIDEZ Primary Care Provider Unavailable Mirza Edwards Unavailable [phone] Reason For Referral No Information Medications Medication [...] Problem Screening for malignant neoplasm of colon (841388623) Encounter for screening for malignant neoplasm of colon (Z12.11) Active confirmed Problem Preprocedural examination (105798060040976) Preprocedural examination (Z01.818) Active confirmed Plan Of Treatment Pending Test Test Name Order Date GI BIOPSY 05/26/2017 Future Test Test Name Order Date COLONOSCOPY 02/12/2017 Insurance Providers Payer Name Payer Address Payer Phone Subscriber Number Group Number Insured Name Patient Relationship to Insured Coverage Start Date Coverage End Date MEDICARE OF [place] [address] [place] [address] [id number] GI PARKER Self - patient is the insured Medical (General) History Medical History History ICD Code Denies NE,DM,CVA,Lung disease,renal dise ase 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 in [place] as of 02/2017--he had previously been evaluated by Dr. Rust Sleep apnea by his history--has never shahid d a formal sleep study Surgical History Surgery Date(Month/Year) Right knee 1993 Right wrist 2006 Right ankle---compound fracture 2015
--- OUTSIDE RECORDS SUMMARY | 2025-03-01 16:15 | XMS_ITS | Encounter Summary ---
Author Organization [employer] Address [address] [place] [address] Care Team Providers Care Reactor Technician Name Role Phone Monique Torres RUSLAN Primary Care Provider [phone] Encounter Details Date Type Department Care Team (Latest Contact Info) Description 02/25/2025 Travel Social History Tobacco Use Types Packs/Day Years [...] AM EDT documented as of this encounter Plan of Treatment Upcoming Encounters Date Type Department Care Team (Late st Contact Info) Description 03/17/2025 8:30 AM EST Clinical Support [address] [address] Colette Reddy RN 05/10/2025 1:45 PM EST Office Visit [address] [address] Monique Torres NP [address] [place] [address] documented as of this encounter Visit Diagnoses Not on filedocumented in this encounter Care Teams Reactor Technician Relationship Specialty Start Date End Date Monique Torres NP [address] [place] [address] PCP - General Family Medicine 02/21/25 documented as of this encounter
--- OUTSIDE RECORDS SUMMARY | 2025-03-01 16:15 | XMS_ITS | Encounter Summary ---
Author Organization [employer] Address [address] [facility] 7t [place] [address] Care Team Providers Care Personnel Administrator Name Role Phone Monique Torres NP Primary Care Provider [phone] Reason for Visit * Reason Onset Date Comments Insurance 02/25/2025 Encounter Details Date Type Department Care Team ([facility] st Contact Info) Description 02/25/2025 Telephone [facility] MEDICINE [address] [place], [place] [phone] Monique Torres NP [address] [place] [address] Insurance Social History Tobacco Use Types Packs/Day Years [...] encounter Miscellaneous Notes * Telephone Encounter - Deshawn Mondragon - 02/25/2025 11:21 AM EDT Spoke to pt related to ins. Patient was informed to call ins to add pcp info to prevent any ins payment conflict. Pt then stated he had spoken to someone in ins enrollment and was going to get back to him and as of this moment no one called. Patient informed video game script writer he is going to come in to see other ins plans. documented in this encounter Plan of Treatment Upcoming Encounters Date Type Department Care Team (Late st Contact Info) Description 03/17/2025 8:30 AM EST Clinical Support [address] [address] Colette Reddy RN 05/10/2025 1:45 PM EST Office Visit [address] [address] Monique Torres NP [address] [place] [address] documented as of this encounter Visit Diagnoses Not on filedocumented in this encounter Care Teams Personnel Administrator Relationship Specialty Start Date End Date Monique Torres NP [address] [place] [address] PCP - General Family Medicine 02/21/25 documented as of this encounter
--- OUTSIDE RECORDS SUMMARY | 2025-03-01 16:15 | XMS_ITS | Clinical Summary ---
Author Organization [employer] Address [address] [facility] 7[address] [place] [address] Care Team Providers Care Flag Signalman Name Role Phone Monique Torres RUSLAN Primary Care Provider [phone] Allergies No known active allergies Medications olmesartan (Benicar) 40 MG tabletIndicati ons:Hypertensi on, unspecified type Take 1 tablet (40 mg) by mouth Once per day. 30 tablet 1 02/17/20 25 026 Active nicotine (Nicoderm CQ) 14 MG/24HR patch Place 1 patch on the skin 1 (one) time each day at the same time. 30 patch 02/23/20 25 025 Active nicotine polacrilex (Nicorette) 4 MG gum Chew 1 each (4 mg) if needed for smoking cessation. 100 each 02/23/20 25 025 Active traMADol (Ultram) 50 MG tabletIndicati ons:Neck pain Take 1 tablet (50 mg) by mouth every 6 (six) hours if needed for severe pain for up to 5 days. Do not start before February 28, 2025. 20 tablet 02/29/20 25 025 Active naloxone (Narcan) 4 mg/0.1 mL nasal sprayIndicatio ns:Long-term current use of opiate analgesic Administer 1 spray (4 mg) into affected nostril(s) if needed for opioid reversal. May repeat every 2-3 minutes if needed, alternating nostrils, until medical assistance becomes available. 2 each 3 03/01/20 25 026 Active traMADol (Ultram) 50 MG tabletIndicati ons:Neck pain Take 1 tablet (50 mg) by mouth every 6 (six) hours if needed for severe pain for up to 5 days. 20 tablet 02/17/20 25 025 Discontinued(R eorder (will not trigger notification to Pharmacy)) traMADol (Ultram) 50 MG tabletIndicati ons:Neck pain Take 1 tablet (50 mg) by mouth every 6 (six) hours if needed for severe pain for up to 5 days. 20 tablet 02/23/20 25 025 Discontinued(R eorder (will not trigger notification to Pharmacy)) Active Problems Problem Noted Date Diagnosed Date Long-term current use of opiate analgesic 2024 Tobacco use disorder 02/22/2025 Assessment & Plan (02/22/2025 4:35 PM EDT): Motivated to quit, smoked up to 2 ppd, down to 1 ppd, abstained 9 months, would like NRT patch and gum Abnormal x-ray 02/22/2025 Assessment & Plan (02/22/2025 4:35 PM EDT): Findings reviewed, ;plan for ct reviewed pt verbalizes understanding Right foot pain 02/22/2025 Assessment & Plan (02/22/2025 4:34 PM EDT): Chornic issue after severe injury, pain impacts QOL Referred to REAL ESTATE PROCESSOR for likely resuming oxyocodone Chronic obstructive pulmonary disease 02/22/2025 Assessment & Plan (02/22/2025 4:34 PM EDT): Pt with abnormal x-ray CT ordered Pt motivated to quit tobacco Has resumed inhalers Chronic pain due to trauma 02/22/2025 Assessment & Plan (02/22/2025 4:35 PM EDT): Referral to die fitter, temporary prescription of tramadol Tachycardia 02/16/2025 Assessment & Plan (02/16/2025 1:17 [...] Encounters Date Type Department Care Team Description 03/01/2025 9:45 AM EDT Clinical Support [facility] [place] [address] Colette Reddy, RN Long-term current use of opiate analgesic (Primary Dx) 03/01/2025 Refill [facility] [place] [address] Colette Reddy, RN Long-term current use of opiate analgesic (Primary Dx) 03/01/2025 Travel 03/01/2025 Telephone [facility] [place] [address] Colette Reddy, RN REAL ESTATE PROCESSOR Tier 02/25/2025 11:30 AM EDT Clinical Support [facility] [place] [address] Sonia West, PACO Hypertension, unspecified type 02/25/[address] [place] [address] Sonia West RN Neck pain 02/25/[address] [address] Monique Torres NP Insurance 02/25/2025 Travel 02/22/2025 2:00 PM EDT Telemedicine [address] [place] [address] Monique Torres NP Tobacco use disorder (Primary Dx); Abnormal x-ray; Right foot pain; Chronic obstructive pulmonary disease, unspecified COPD type (CMS/HCC) (HCC); Chronic pain due to trauma; Neck pain 02/22/[address] [address] Colette Reddy RN Schedule REAL ESTATE PROCESSOR Initial/Chronic Pain 02/22/2025 Travel 02/22/2025 Results Follow-Up [address] [address] Monique Torres NP XR Chest 2 Views 02/22/[address] [address] Monique Torres NP Nurse Triage 02/16/2025 10:45 AM EDT Office Visit [address] [address] Monique Torres NP Tachycardia (Primary Dx); Neck pain; Hypertension, unspecified type; Shortness of breath on exertion 02/16/[address] [address] Dante Randall MA Referral ([facility] Cardiology ) 02/16/2025 Travel 02/15/[address] [address] Sandra Obrien NP Chart Prep 02/14/[address] [address] Caitlyn, MD Jorge Insurance 02/09/2025 Patient Outreach [facility] [address] [place] [address] Sandra Obrien NP Pre-visit Planning (SDOH negative, [...] 18 02/25/2025 11:34 AM EDT Oxygen Saturation 97% 02/16/2025 11:06 AM EDT Inhaled Oxygen Concentration - - Weight 114 kg (250 lb 6.4 oz) 02/25/2025 11:34 A M EDT Height 177.8 cm (5' 10 ) 02/25/2025 11:34 AM EDT Body Mass Index 35.93 02/25/2025 11:34 AM EDT Plan of Treatment Upcoming Encounters Date Type Department Care Team (Late st Contact Info) Description 03/17/2025 8:30 AM EST Clinical Support [facility] [address] [place] [address] Colette Reddy, RN 05/10/2025 1:45 PM EST Office Visit [facility] [address] [place] [address] Monique Torres NP [address] [place] [address] Health Maintenance Due Date Last Done Comments CT Colonography 1955 Colonoscopy 1955 Colorectal Cancer Screening 1955 FIT DNA/Cologuard 1955 FIT 1955 FOBT 1955 Sigmoidoscopy 1955 Hepatitis C Screening 09/14/1973 DTaP/Tdap/Td Vaccines (1 - Tdap) 09/14/1974 Pneumococcal Vaccine: 50+ Years (1 of 2 - PCV) 09/14/1974 Zoster Vaccines (1 of 2) 09/14/2005 RSV Patients and Patients Aged 60 years or older (1 - Risk 60-74 years 1-dose series) 2015 Influenza Vaccine (#1) 2025 , 01/10/2023, 01/21/2022, Additional history exists COVID-19 Vaccine ( season) 2025 07/16/2024, 04/15/2022, 04/23/2021, Additional history exists SDOH Screening 02/09/2026 02/09/2025 Depression Screening 02/16/2026 02/16/2025, 02/17/20 Tobacco Screening 02/16/2026 02/16/2025 Alcohol/Substance Use Screening 02/22/2026 02/22/2025 Diabetes: Hemoglobin A1C 02/22/2026 02/22/2025 Lipid Panel 02/22/2030 02/22/2025 HIB Vaccines Aged Out No longer eligi [...] EDT Long-term current use of opiate analgesic XR CERVICAL SPINE 4V Routine 02/22/2025 9:00 AM EDT Neck pain XR CHEST 2 VIEWS Routine 02/22/2025 8:57 AM EDT Shortness of breath on exertion HEMOGLOBIN A1C Routine 02/22/2025 8:18 AM EDT Hypertension, unspecified type HEPATIC FUNCTION PANEL Routine 02/22/2025 8:18 AM EDT Hypertension, unspecified type BASIC METABOLIC PANEL Routine 02/22/2025 8:18 AM EDT Tachycardia LIPID PANEL, STANDARD Routine 02/22/2025 8:18 AM EDT Tachycardia ECG 12-LEAD Routine 02/16/2025 1:17 PM EDT Tachycardia from Last 3 Months Results * (ABNORMAL) POCT CHIDI-14 Urine Drug Screen (03/01/2025 10:24 AM EDT) THC Negative Negative Cocaine Screen, Urine Positive(A) [...] - 03/01/2025 10:24 AM EDT UTOX cup Lot#[id number] Exp. 02/08/26 Internal Pass Control Monique Torres NP POINT OF CARE TEST ENTER/EDIT OR DERABLES Final Result * (ABNORMAL) Oxycodone Screen, Urine (03/01/2025 10:00 AM EDT) Pathologist [facility] Oxycodone Urine Screen Positive( A) Not Detect ng/mL [facility] Comment:Oxycodone cut-off is 100 ng/mL.Positive results are unconfirmed and should not be used fornon-medical purposes. Urine 03/01/2025 10:0 0 AM EDT 03/01/2025 12:53 PM EDT Monique Torres NP LAB URINE ORDERABLES Final Resul t [facility] [address] [place] [phone] * XR CERVICAL SPINE 4V (02/22/2025 9:00 AM EDT) Anatomical Region Laterality Modality Abdomen Radiographic Cassy ging 02/22/2025 9:00 AM EDT Narrative 02/22/2025 9:14 AM EDT [address] [address] XRay Report Signed Patient: Stanley Mejia MR#: [id number] 902 : 1955 Acct:[id number] Age/Sex: 69 / M ADM Date: 02/22/25 Loc: .[facility] Attending Dr: Monique Torres NUTRITION THERAPIST Ordering Physician: Monique Torres NP Date of Service: 02/22/25 Procedure(s): XR cervical spine 4V Accession Number(s): [id number] cc: Monique Torres NP Reason for Exam: chronic neck pain hx of neuropathy EXAMINATION: XR CERVICAL SPINE CLINICAL INFORMATION: chronic neck pain hx of neuropathy COMPARISON: None available. TECHNIQUE: AP oblique and lateral views. Atlantoodontoid view. FINDINGS: Craniocervical junction is intact. Multilevel marginal osteophyte formation and endplate sclerosis decreased intervertebral disc height C4 7. Grade 1 retrolisthesis C4-5. Bilateral neuroforamina stenosis from C4-5 to C6-7, left greater than the right side secondary to osteophyte formation. XR/XR cervical spine 4V IMPRESSION: Multilevel cervical spondylosis C4 C7, moderate to severe. Electronically signed by: Lawrence Ochoa MD 02/22/2025 09:12 AM EDT Dictated By: Lawrence Tomlin MD Signed By: <Electronically signed by Lawrence Huynh MD in OV> 02/22/25911 DD/ 9 TD/TT: 02/22/25899 Avionics Systems Technician: Procedure Note Donotuseinterpreter, Image - 02/22/[address] [address] XRay Report Signed Patient: Stanley Mejia SMR#: [id number] 902 : 1955cct:[id number] Age/Sex: 69 / MADM Date: 02/22/25 Loc: [facility] Attending Dr: Monique Torres NUTRITION THERAPIST Ordering Physician: Monique Torres NP Date of Service: 02/22/25 Procedure(s): XR cervical spine 4V Accession Number(s): [id number] cc: Monique Torres NP Reason for Exam: chronic neck pain hx of neuropathy EXAMINATION: XR CERVICAL SPINE CLINICAL INFORMATION: chronic neck pain hx of neuropathy COMPARISON: None available. TECHNIQUE: AP oblique and lateral views. Atlantoodontoid view. FINDINGS: Craniocervical junction is intact. Multilevel marginal osteophyte formation and endplate sclerosis decreased intervertebral disc height C4 7. Grade 1 retrolisthesis C4-5. Bilateral neuroforamina stenosis from C4-5 to C6-7, left greater than the right side secondary to osteophyte formation. XR/XR cervical spine 4V IMPRESSION: Multilevel cervical spondylosis C4 C7, moderate to severe. Electronically signed by: Lawrence Ochoa MD 02/22/2025 09:12 AM EDT Dictated By: Lawrence Tomlin MD Signed By: <Electronically signed by Lawrence Huynh MDin OV> 02/22/25911 DD/ 9 TD/TT: 02/22/25899 Avionics Systems Technician: us Monique Torres NUTRITION THERAPIST IMG XR PROCEDURES Edited Result - Final * XR Chest 2 Views (02/22/2025 8:57 AM EDT) Anatomical Region Laterality Modality Chest Radiographic Cassy ging 02/22/2025 8:57 AM EDT Narrative 02/22/2025 9:13 AM EDT [address] [address] XRay Report Signed Patient: Stanley Mejia MR#: [id number] 902 : 1955 Acct:[id number] Age/Sex: 69 / M ADM Date: 02/22/25 Loc: [facility] Attending Dr: Monique Torres NUTRITION THERAPIST Ordering Physician: Monique Torres NP Date of Service: 02/22/25 Procedure(s): XR chest 2V Accession Number(s): [id number] cc: Monique Torres NP Reason for Exam: long time smoker exertional sob EXAMINATION: XR CHEST CLINICAL INFORMATION: long time smoker exertional sob COMPARISON: February 28, 2011. TECHNIQUE: PA and lateral views FINDINGS: Low lung volume. Linear opacity left lower hemithorax. No pneumothorax. Cardiomediastinal silhouette size is normal. Calcified plaque thoracic aorta. Multilevel thoracolumbar spondylosis. Osteopenia versus osteoporosis. XR/XR chest 2V IMPRESSION: Left-sided pleural effusion, moderate volume. Superimposed airspace disease cannot be excluded. Recommend CT chest. Electronically signed by: Lawrence Ochoa MD 02/22/2025 09:10 AM EDT Dictated By: Lawrence Tomlin MD Signed By: <Electronically signed by Lawrence Huynh MD in OV> 02/22/25 0910 DD/ 08 TD/TT: 02/22/25 09 Avionics Systems Technician: Procedure Note Donotuseinterpreter, Image - 02/22/2025 [place] [address] XRay Report Signed Patient: Stanley Mejia [facility]#: [id number] 902 : 1955cct:[id number] Age/Sex: 69 / MADM Date: 02/22/25 Loc: [facility] Attending Dr: Monique Torres NUTRITION THERAPIST Ordering Physician: Monique Torres NP Date of Service: 02/22/25 Procedure(s): XR chest 2V Accession Number(s): [id number] cc: Monique Torres NP Reason for Exam: long time smoker exertional sob EXAMINATION: XR CHEST CLINICAL INFORMATION: long time smoker exertional sob COMPARISON: February 28, 2011. TECHNIQUE: PA and lateral views FINDINGS: Low lung volume. Linear opacity left lower hemithorax. No pneumothorax. Cardiomediastinal silhouette size is normal. Calcified plaque thoracic aorta. Multilevel thoracolumbar spondylosis. Osteopenia versus osteoporosis. XR/XR chest 2V IMPRESSION: Left-sided pleural effusion, moderate volume. Superimposed airspace disease cannot be excluded. Recommend CT chest. Electronically signed by: Lawrence Ochoa MD 02/22/2025 09:10 AM EDT RP Dictated By: Lawrence Tomlin MD Signed By: <Electronically signed by Lawrence Huynh MDin OV> 02/22/25909 DD/ 6 TD/TT: 02/22/25899 Avionics Systems Technician: us Monique Torres NP IMG XR PROCEDURES Edited Result - Final * Hemoglobin A1c (02/22/2025 8:18 AM EDT) Hemoglobin A1c 6.0 <6.0 % [facility] Comment:Hemoglobin A1C Refer ence Range Adults: 4.8 - 6.0 % Non diabetic: < 6.0 % Goal: < 7.0 %Additional Action Suggested: > 8.0 %Note: Hemoglobin A1c results are invalid for patients with abnormal amounts of HbF. Blood transfusions may impact the HbA1c concentration in the patient sample. Estimated Average Glucose 126 mg/dL [facility] Comment:eAG = Estimated ave rage glucose which is %A1C expressed asaverage glucose, using the formula of the E5M-RhucoktQtefrcx Glucose study (ADAG), Diabetes Care, Vol.31,#8,Dec. 2007 Blood Venous blood specimen / Unknown 02/22/2025 8:18 AM EDT 02/22/2025 11:32 AM EDT us Monique Torres NP LAB BLOOD ORDERABLES Final Resul t [facility] [address] [place] [phone] * Hepatic Function Panel (02/22/2025 8:18 AM EDT) Bilirubin, Total 0.3 0.0 - 1.0 mg/dL [facility] Bilirubin, Direct 0.1 0.0 - 0.5 mg/dL [facility] Aspartate Amino Transferase 24 5 - 37 U/L [facility] Alanine Aminotransferase 22 0 - 40 U/L [facility] Total Protein 7.4 6.5 - 8.0 g/dL [facility] Albumin Level 4.4 3.5 - 5.0 g/dL [facility] Alkaline Phosphatase 73 39 - 117 U/L [facility] Blood Venous blood specimen / Unknown 02/22/2025 8:18 AM EDT 02/22/2025 11:32 AM EDT us Monique Torres NP LAB BLOOD ORDERABLES Final Resul t [facility] [address] [place] [phone] * (ABNORMAL) Lipid Panel, Standard (02/22/2025 8:18 AM EDT) Pathologist [facility] Triglycerides 125 <150 mg/dL [facility] Comment:Desirable Triglyceri de: less than 150 mg/dLBorderline High Triglyceride 150-199 mg/dLHigh Triglyceride: 200-499 mg/dLVery High Triglyceride: greater than or equal to 5OO mg/dL Cholesterol 214(H) <200 mg/dL [facility] Comment:Desirable Cholestero l: less than 200 mg/dLBorderline High Cholesterol: 200-239 mg/dLHigh Cholesterol: greater than 239 mg/dL LDL Cholesterol Calculated 155(H) <100 mg/dL [facility] Comment:Desirable LDL: less than 100 mg/dLNear Optimal/Above Optimal LDL: 110- 129 mg/dLBorderline High LDL: 130-159 mg/dLHigh LDL: 160-189 mg/dLVery High LDL: greater than or equal to 190 mg/dL HDL Cholesterol 34(L) >40 mg/dL [facility] Comment:Desirable HDL: great er than 40 mg/dL Note: This HDL assay may give artificially low results in patients with liver disease. Blood Venous blood specimen / Unknown 02/22/2025 8:18 AM EDT 02/22/2025 11:32 AM EDT us Monique Torres NUTRITION THERAPIST LAB BLOOD ORDERABLES Final Resul t Performing Organization Address [facility] de Phone Number [facility] [address] [place] [phone] * (ABNORMAL) Basic Metabolic Panel (02/22/2025 8:18 AM EDT) Sodium 139 135 - 145 mmol/L [facility] Potassium 4.1 3.3 - 5.1 mmol/L [facility] Chloride 110(H) 96 - 108 mmol/L [facility] Carbon Dioxide 24 22 - 29 mmol/L [facility] Anion Gap 9(L) 12 - 20 [facility] Urea Nitrogen (BUN) 19(H) 9 - 16 mg/dL [facility] Creatinine, Serum 0.80 0.5 - 1.4 mg/dL [facility] Estimated Glomerular Filt Rate >60 [facility] Comment:Chronic Kidney Disea se: Estimated GFR < 60 mL/min/1.23g5Pjbrbf Kidney Disease: Estimated GFR < 15 mL/min/1.73m2 Glucose 135(H) 60 - 115 mg/dL [facility] Calcium 9.0 8.4 - 10.2 mg/dL [facility] Blood Venous blood specimen / Unknown 02/22/2025 8:18 AM EDT 02/22/2025 11:32 AM EDT us Monique Torres NUTRITION THERAPIST LAB BLOOD ORDERABLES Final Resul t Performing Organization Address [facility] Co de Phone Number [facility] [address] [place] [phone] * ECG 12 lead (02/16/2025 1:17 PM EDT) Narrative Monique Torres NP - 02/16/2025 1:17 PM EDT Lafb, rbbb ?depression in leads 2 and 5 us Monique Torres NUTRITION THERAPIST ECG ORDERABLES Final Result from Last 3 Months Insurance [employer] PPO Care Teams Flag Signalman Relationship Specialty Start Date End Date Monique Torres NP [address] [place] [phone] PCP - General Family Medicine 02/21/25
--- OUTSIDE RECORDS SUMMARY | 2025-03-01 16:15 | XMS_ITS | Encounter Summary ---
Author Organization [employer] Address [address] [place] [address] Care Team Providers Care Hydraulic Tester Name Role Phone Monique Torres RUSLAN Primary Care Provider [phone] Encounter Details Date Type Department Care Team (Latest Contact Info) Description 03/01/2025 Travel Social History Tobacco Use Types Packs/Day [...] Description 03/17/2025 8:30 AM EST Clinical Support [address] [address] Colette Reddy RN 05/10/2025 1:45 PM EST Office Visit [address] [address] Monique Torres NP [address] [place] [phone] documented as of this encounter Visit Diagnoses Not on filedocumented in this encounter Care Teams Hydraulic Tester Relationship Specialty Start Date End Date Monique Torres NP [address] [place] [phone] PCP - General Family Medicine 02/21/25 documented as of this encounter
--- OUTSIDE RECORDS SUMMARY | 2025-03-01 16:15 | XMS_ITS | Encounter Summary ---
Author Organization [employer] Address [address] [place] [address] Care Team Providers Care Wave Soldering Machine Operator Name Role Phone MelissaMonique RUSLAN Primary Care Provider [phone] Reason for Visit * Reason Onset Date Comments EMT PARAMEDIC Tier 03/01/2025 Encounter Details Date Type Department Care Team ([facility] st Contact Info) Description 03/01/2025 Telephone [facility] [address] [place], [place] [phone] Colette Reddy RN EMT PARAMEDIC Tier Social History Tobacco Use Types Packs/Day Years [...] Encounter - Colette Reddy RN - 03/01/2025 7:17 AM EDT What EMT PARAMEDIC Tier would you like this patient to be? Tier 1 = HIGH RISK, Monthly EMT PARAMEDIC visits Tier 2 = MODerate RISK, Q3 Month visits Tier 3 = LOW RISK = Q4-6 month visits documented in this encounter Plan of Treatment Upcoming Encounters Date Type Department Care Team (Late st Contact Info) Description 03/17/2025 8:30 AM EST Clinical Support [address] [address] Colette Reddy RN 05/10/2025 1:45 PM EST Office Visit [address] [address] Monique Torres NP [address] [place] [address] documented as of this encounter Visit Diagnoses Not on filedocumented in this encounter Care Teams Wave Soldering Machine Operator Relationship Specialty Start Date End Date Monique Torres NP [address] [place] [phone] PCP - General Family Medicine 02/21/25 documented as of this encounter
[2025-03-09 08:56] LABS: Codeine, Ur Negative; Hydrocodone, Ur Negative
[2025-03-09 08:57] LABS: Hydromorphone, Ur Negative; Morphine, Ur Negative; Norhydrocodone, Ur Negative
[2025-03-09 09:02] LABS: Noroxycodone, Ur 9094; Oxycodone, Ur 4994; Oxymorphone, Ur 1186
== END 2025-03-01 12:53 | disposition home or self-care (01) ==
LOC: HO.HHCLNP 12:52
PROVIDERS: Visit Provider Nurse Practitioner Family
DX: Z51.81 Encounter for therapeutic drug level monitoring (principal); Z87.891 Personal history of nicotine dependence
CPT/HCPCS: 80307; 80353; 80365; G0480